=== PATIENT | male | born 1940 | race Caucasian/White ===

== ENCOUNTER → 2020-04-13 13:24 | Outpatient (BNVA) | payer MEDICARE, BC, SELFPAY | PROVIDERS: Family Provider Family Medicine; Visit Provider Nurse Practitioner Family | DX: M79.605 Pain in left leg (principal); L81.9 Disorder of pigmentation, unspecified | CPT/HCPCS: 80053; 85025 ==

== ENCOUNTER → 2020-04-20 09:27 | Outpatient (BNVA) | payer MEDICARE, BC, SELFPAY | PROVIDERS: Family Provider Family Medicine; Visit Provider Nurse Practitioner Family | DX: E87.6 Hypokalemia (principal) | CPT/HCPCS: 80048 ==

== ENCOUNTER 2020-05-05 13:32 | Outpatient (CLI) | payer MEDICARE, BC, SELFPAY ==
--- NOTE | 2020-05-05 13:30 | USCV_ITS ---
Akash Pichardo Age: 80 Gender: M : 1940 Exam Date: 05/05/2020 14:54 Ordering Phys: Maggie Richmond STAFFING DIRECTOR-Kina Technologist: Leon Gr [place] [facility] [place]ication: LT LEG SWELLING PROCEDURES: Venous duplex imaging was performed in only the left lower extremity. The following venous structures were evaluated: common femoral vein, profunda vein, proximal portion of the greater saphenous vein, superficial femoral vein, and the popliteal vein. In addition, the posterior tibial and peroneal trunk were evaluated. Serial compression, augmentation maneuvers, and spectral Doppler flow evaluation were performed. FINDINGS: Normal 2-D Doppler and augmentation and compressibility throughout the lower extremity venous structures. Additional imaging through the proximal calf veins also reveals no thrombus. Limited evaluation of the greater saphenous vein is patent with no thrombus.. The veins were found to be easily compressible with spontaneous blood flow. Non pulsatile flow pattern. Areas of echolucency were noted in the subcutaneous tissue CONCLUSIONS No evidence of DVT in the above-mentioned identifiable veins. Evidence of fluid retention/edema of the left lower extremity Dr Charis Garcia MD [facility] (Electronically Signed) Final Date: 08 May 2020 08:30 S
== END 2020-05-05 13:33 | disposition home or self-care (01) ==
LOC: RAD 13:38
PROVIDERS: Family Provider Family Medicine; Visit Provider Nurse Practitioner Family
DX: M79.605 Pain in left leg (principal); L81.9 Disorder of pigmentation, unspecified; M79.89 Other specified soft tissue disorders
CPT/HCPCS: 93971

== ENCOUNTER → 2020-05-17 15:14 | Outpatient (BNVA) | payer MEDICARE, BC, SELFPAY | PROVIDERS: Family Provider Family Medicine; PCP Nurse Practitioner; Visit Provider Nurse Practitioner | DX: E11.65 Type 2 diabetes mellitus with hyperglycemia (principal); I10 Essential (primary) hypertension | CPT/HCPCS: 80048; 83036; 85025 ==

== ENCOUNTER → 2020-06-23 15:37 | Outpatient (BNVA) | payer MEDICARE, BC, SELFPAY | PROVIDERS: Family Provider Family Medicine; PCP Nurse Practitioner; Visit Provider Nurse Practitioner Family | DX: R35.0 Frequency of micturition (principal) | CPT/HCPCS: 81000 ==

== ENCOUNTER → 2020-07-26 13:34 | Outpatient (BNVA) | payer MEDICARE, BC, SELFPAY | PROVIDERS: Family Provider Family Medicine; PCP Nurse Practitioner; Visit Provider Nurse Practitioner | DX: E11.65 Type 2 diabetes mellitus with hyperglycemia (principal) | CPT/HCPCS: 80053; 80061; 83036 ==

== ENCOUNTER → 2021-01-29 16:01 | Outpatient (BNVA) | payer MEDICARE, BC, SELFPAY | PROVIDERS: Family Provider Family Medicine; PCP Nurse Practitioner; Visit Provider Nurse Practitioner Family | DX: M25.431 Effusion, right wrist (principal); M79.89 Other specified soft tissue disorders; L53.9 Erythematous condition, unspecified; M79.601 Pain in right arm; E11.65 Type 2 diabetes mellitus with hyperglycemia; I10 Essential (primary) hypertension | CPT/HCPCS: 73110; 80053; 80061; 83036; 85025 ==

== ENCOUNTER 2021-01-30 11:02 | Outpatient (CLI) | payer MEDICARE, BC, SELFPAY ==
--- NOTE | 2021-01-30 11:00 | USCV_ITS ---
Akash Pichardo Age: 81 Gender: M : 1940 Exam Date: 01/30/2021 11:25 Ordering Phys: Maggie Richmond SOCIAL WORK ASSOCIATE-C Technologist: Sheree Hess Exam Location: [facility] – [place] Indication: REDNESS, SWELLING, PAIN-FOREARM TO HAND HISTORY: UNCLEAR TO WHETHER THERE WAS AN INJURY. HAND RED AND PUFFY...SWELLING HAS GONE FAR ELBOW PER FAMILY BUT NOT THAT EXTENSIVE TODAY PROCEDURES: Venous duplex imaging was performed in only the right upper extremity. The following venous structures were evaluated: internal jugular vein, subclavian vein, axillary vein, and brachial veins. In addition, the basilic vein, cephalic vein, radial vein, and ulnar vein. FINDINGS: Normal 2-D, color Doppler and phasicity noted in ther right upper extremity venous system extending from the right internal jugular vein through the main forearm. No thrombosis or occlusion noted. CONCLUSIONS No right upper extremity DVT. Dr. Ethel Espinoza DO (Electronically Signed) Final Date: 30 January 2021 13:06 S
== END 2021-01-30 11:03 | disposition home or self-care (01) ==
LOC: RAD 11:12
PROVIDERS: PCP Nurse Practitioner; Visit Provider Nurse Practitioner Family
DX: M79.89 Other specified soft tissue disorders (principal); L53.9 Erythematous condition, unspecified; M79.601 Pain in right arm
CPT/HCPCS: 93971

== ENCOUNTER → 2021-05-14 15:53 | Outpatient (BNVA) | payer MEDICARE, BC, SELFPAY | PROVIDERS: PCP Nurse Practitioner; Visit Provider Nurse Practitioner | DX: I10 Essential (primary) hypertension (principal); E11.65 Type 2 diabetes mellitus with hyperglycemia; K21.9 Gastro-esophageal reflux disease without esophagitis; F41.9 Anxiety disorder, unspecified; F03.90 Unspecified dementia, unspecified severity, without behavioral disturbance, psychotic disturbance, mood disturbance, and anxiety; F51.04 Psychophysiologic insomnia; R01.1 Cardiac murmur, unspecified | CPT/HCPCS: 80053; 81000; 83036; 84443; 85025 ==

== ENCOUNTER → 2021-09-04 15:56 | Outpatient (BNVA) | payer MEDICARE, BC, SELFPAY | PROVIDERS: PCP Nurse Practitioner; Visit Provider Nurse Practitioner | DX: R30.0 Dysuria (principal); E11.65 Type 2 diabetes mellitus with hyperglycemia | CPT/HCPCS: 81000 ==

== ENCOUNTER → 2021-09-05 09:29 | Outpatient (BNVA) | payer MEDICARE, BC, SELFPAY | PROVIDERS: PCP Nurse Practitioner; Visit Provider Nurse Practitioner | DX: E11.65 Type 2 diabetes mellitus with hyperglycemia (principal) | CPT/HCPCS: 80053; 80061; 83036; 85025 ==

== ENCOUNTER → 2021-11-05 14:33 | Outpatient (BNVA) | payer MEDICARE, BC, SELFPAY | PROVIDERS: PCP Nurse Practitioner; Visit Provider Nurse Practitioner | DX: E11.65 Type 2 diabetes mellitus with hyperglycemia (principal); I10 Essential (primary) hypertension | CPT/HCPCS: 81000 ==

== ENCOUNTER 2022-03-29 14:35 | Inpatient (IN) | payer MEDICARE, BC, SELFPAY ==
[2022-03-29] VITALS (9 sets, daily range): BP systolic 114–154; BP diastolic 61–75; PULSE 65–74; RESP 15–26; TEMP 36.9–37.8; O2SAT 89–98
--- NOTE | 2022-03-29 14:49 | XR_ITS ---
WS: [id number] Portable AP upright chest, 03/29/2022 Clinical Data: sob Comparison: None. Findings: There are bilateral basilar opacities which may represent atelectasis, pneumonia and/or eff usion. The heart is enlarged. The upper lobes are clear. There is a permanent pacemaker with the gene rator overlying the left chest and a single wire leading to the heart. XR/XR chest 1V portable [id number] Impression: 1. Bibasilar pulmonary opacities which may represent atelectasis, pneumonia and effusion. 2. Cardiomegaly.
--- NOTE | 2022-03-29 14:50 | ECG_ITS ---
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 Measurements Intervals [place] Rate: 65 P: [place]: QRS: -80 QRSD: 165 T: 92 QT: 489 QTc: 509 Interpretive Statements ELECTRONIC VENTRICULAR PACEMAKER ABNORMAL RHYTHM ECG No previous ECG available for comparison Electronically Signed On 03-30-2022 18:50:53 CDT by Charis Garcia M.D. [id number]
--- NOTE | 2022-03-29 15:16 | W.ED.SOB ---
Documented by User: HUGH Lewis 03/29/22 22:23 HPI - SOB/Dyspnea General: Chief Complaint: Shortness of Breath/Dyspnea Stated Complaint: Blood sugar level high, SOB Time Seen by Provider: 03/29/22 14:49 History of Present Illness: HPI Narrative: Patient is an 82-year-old male comes to the ED with shortness of breath. Past medical history of type 2 diabetes, hypertension, acid reflux and dementia. Patient has a pacemaker. Over the past week patient has had increased shortness of breath. He is not on any oxygen at home. Shortness of breath worsens when he lies flat or upon any exertion. Patient is currently on Lasix 20 mg every morning but his PCP increased his dose of Lasix to 80 mg daily for the past 3 days due to some fluid on his lungs. Denies any chest pain, cough, hemoptysis, fever, chills, nausea/vomiting, abdominal pain, bladder or bowel symptoms. Patient was taking doxycycline to treat a UTI and finished his course of antibiotics 3 days ago. Associated symptoms: Reports orthopnea; Deny abdominal pain, chest pain, fever(s), nausea, palpitations or vomiting Review of Systems Const: Denies: fever(s), chills or fatigue Eyes: Denies: change in vision or eye discomfort ENMT: Denies: throat pain, odynophagia, nasal discharge or nasal congestion Card: Reports: edema (Bilateral lower extremity edema), dyspnea on exertion and orthopnea; Denies: chest pain, palpitations or swelling of feet/ankles Resp: Reports: dyspnea; Denies: productive cough or non-productive cough GI: Denies: abdominal pain, nausea, vomiting, diarrhea, constipation or hematochezia : Denies: flank pain, difficulty urinating, dysuria or hematuria Musc: Denies: neck pain, back pain or extremity swelling Skin/Breast: Denies: rash or new lesions Neuro: Denies: headache(s), numbness in extremities or weakness in extremities PFSH ED PFSH: Medical History Acid reflux Dementia Environmental and seasonal allergies Essential (primary) hypertension Former smoker Hearing loss Heart murmur Type 2 diabetes mellitus with hyperglycemia Surgical History History of appendicitis right side History of hernia repair Family History Other Cancer Dementia Diabetes Hypertension Denies family history of Bleeding disorder Lung disease Stroke Social History Smoking and tobacco status: former smoker Second hand smoke exposure: No Smoking risk assessment/counseling performed?: No Alcohol intake: former Desire information about alcohol rehabilitation?: No Counseling given: No Desire information about substance/drug rehabilitation?: No Counseling given: No Adopted: No Caregiver/support person: No Lives independently: Yes Household members: none Housing: House Marital status: / Number of children: 5 service: No Current occupational status: retired History of recent travel: No Current gender identity: Male Physical Exam Const: COMMON NORMALS: patient oriented x3 and alert GENERAL APPEARANCE: cooperative HENMT: COMMON NORMALS: normocephalic HEAD & SCALP: normocephalic MOUTH: Normal oral and palatal mucosa present THROAT: posterior oropharynx normal and uvula midline Neck/C-Spine: COMMON NORMALS: supple GENERAL: Yes normal visual inspection Resp: COMMON NORMALS: normal respiratory effort, No retractions and No use of accessory muscles AUSCULTATION: crackles Laterality: left (Left lower lobe ) Cardio: COMMON NORMALS: regular rate, regular rhythm, S1 normal heart sound present, S2 normal heart sound present, No gallops present (Cardio), No clicks present (Cardio), No murmurs present (Cardio) and Peripheral pulses 2+ throughout RATE: regular rate RHYTHM: regular rhythm HEART SOUNDS: S1 normal heart sound present and S2 normal heart sound present PERIPHERAL PULSES: Peripheral pulses 2+ throughout GI: COMMON NORMALS: Normal to inspection, nondistended, normoactive bowel sounds present, Soft to palpation, non-tender and no masses PALPATION: Yes Soft to palpation : COMMON NORMALS: Yes no CVA tenderness BLADDER/KIDNEY EXAM: Yes no CVA tenderness Back/Pelvis: COMMON NORMALS: no CVA tenderness Extremity: GENERAL: Yes edema (Bilateral 2+ pitting edema in lower extremities) Neuro: COMMON NORMALS: patient oriented x3 SENSORIUM/ORIENTATION: Yes alert GAIT: Yes Normal gait present Skin: GENERAL SKIN EXAM: dry skin Course Vital Signs: Vital signs: Vital Signs Temperature 98.2 F 04/02/22 05:00 Pulse Rate 75 04/02/22 05:30 Respiratory Rate 24 H 04/02/22 05:30 Blood Pressure 163/78 04/02/22 05:30 Pulse Oximetry 91 04/02/22 05:30 Oxygen Delivery Me thod 04/01/22 19:52 Oxygen Flow Rate 2 04/01/22 19:52 MDM - SOB/Dyspnea Medical Decision Making Patient is an 82-year-old male who comes to the ED with shortness of breath. Past medical history of pacemaker, type 2 diabetes, hypertension and acid reflux. Shortness of breath symptoms worsen with exertion or when lying flat. Patient has been taking 80 mg of Lasix for the past 3 days to help with fluid retention. Vitals were stable. Exam of patient shows some crackling in the left lung base. He has 2+ pitting edema in his lower extremities. Chest x-ray showed some bibasilar pulmonary opacities likely effusion or pneumonia. White blood cell count 16, BNP over 70,000. Patient had a Pap and be put on 1 to 2 L of oxygen via nasal cannula here in the ED. I talked with Dr. Márquez about patient case and his need for admission. Dr. Márquez then took over patient case and had patient admitted. Lab Data I reviewed the patient's lab results. : 04/02/22 05:26 04/02/22 05:26 Labs/Radiology: Radiology Impressions Chest/Abdomen/Pelvis CT 03/29/22 19:43 IMPRESSION: Bilateral pleural effusions right greater than left. Dependent pulmonary parenchymal opacities noted bilaterally; there is probable component of atelectasis but coexisting infiltrate may also be present in these regions. Smaller patches of infiltrate in right upper lobe can relate to edema or infectious/inflammatory process. Findings suspicious for aortic valvular stenosis. Additional details as above. IMPRESSION: No findings of obstructive uropathy. Mojica catheter is well positioned in urinary bladder. Relatively prominent stool at rectosigmoid; early impaction difficult to exclude. Layering high density material in gallbladder can represent stones or milk of calcium. Motion degradation in upper abdomen. Additional details as above. Head CT 03/30/22 01:12 IMPRESSION: No acute intracranial abnormality. Chest X-Ray 04/01/22 07:37 IMPRESSION: Increasing abnormality in both hemithoraces most compatible with congestive heart failure. Laboratory Results WBC 16.0 10^3/uL (4.0-10.0) H 03/29/22 15:36 RBC 3.47 10^6/uL (4.1-5.3) L 03/29/22 15:36 Hgb 10.2 g/dL (11.7-16.6) L 03/29/22 15:36 Hct 32.5 % (42.0-52.0) L 03/29/22 15:36 MCV 93.7 fl (80-94) 03/29/22 15:36 MCH 29.4 pg (28.0-34.0) 03/29/22 15:36 MCHC 31.4 g/dL (30.0-36.0) 03/29/22 15:36 RDW 15.9 % (12.1-15.1) H 03/29/22 15:36 Plt Count 279 10^3/cmm (130-400) 03/29/22 15:36 MPV 10.9 fL (7.4-10.4) H 03/29/22 15:36 Neut % (Auto) 78.8 % 03/29/22 15:36 Lymph % (Auto) 12.3 % 03/29/22 15:36 [place] % (Auto) 8.2 % 03/29/22 15:36 Eos % (Auto) 0.0 % 03/29/22 15:36 Baso % (Auto) 0.1 % 03/29/22 15:36 Neut # (Auto) 12.65 10^3/uL (1.8-7.7) H 03/29/22 15:36 Lymph # (Auto) 2.0 10^3/uL (0.8-4.8) 03/29/22 15:36 [place] # (Auto) 1.3 10^3/uL (0.2-0.9) H 03/29/22 15:36 Eos # (Auto) 0.0 10^3/uL (0.0-0.8) 03/29/22 15:36 Baso # (Auto) 0.0 10^3/uL (0.0-0.1) 03/29/22 15:36 Nucleated RBC % (auto) 0.2 % 03/29/22 15:36 Nucleated RBCs # 0.0 /100WBC 03/29/22 15:36 Specimen Type Arterial 03/29/22 11:59 Sample Site Brachial, left 03/29/22 11:59 ABG pH 7.53 (7.35-7.45) H 03/29/22 11:59 ABG pCO2 19.4 mmHg (35-45) L* 03/29/22 11:59 ABG pO2 59.8 mmHg (80.0-100.0) L 03/29/22 11:59 ABG HCO3 16.1 mmol/L (22-26) L 03/29/22 11:59 ABG O2 Saturation 93.5 03/29/22 11:59 ABG Base Excess -5.4 mmol/L (-2.0-2.0) L 03/29/22 11:59 Jairo Test N/a 03/29/22 11:59 A-a O2 Gradient 14.8 mmHg (5-10) H 03/29/22 11:59 Hematocrit 27.0 % (42-52) L 03/29/22 11:59 Hgb O2 Saturation 91.5 % (95-100) L 03/29/22 11:59 Carboxyhemoglobin 2.1 %THgb (0.4-20.1) 03/29/22 11:59 Methemoglobin 0.1 % (0.4-1.5) L 03/29/22 11:59 Total Hemoglobin 8.8 g/dL (14-18) L 03/29/22 11:59 Sodium 129.0 mmol/L (131-143) L 03/29/22 11:59 Potassium 3.4 mmol/L (3.5-5.0) L 03/29/22 11:59 Glucose 158.0 mg/dL (70-115) H 03/29/22 11:59 Ionized Calcium 1.1 mmol/L (1.1-1.4) 03/29/22 11:59 O2 Delivery Device Nc 03/29/22 11:59 O2 Liters/Min 2.0 % 03/29/22 11:59 FiO2 28.0 % 03/29/22 11:59 Inside Sales Account Representative ID Ed 03/29/22 11:59 Sodium 132 mmol/L (136-145) L 03/29/22 15:36 Potassium 4.3 mmol/L (3.5-5.1) 03/29/22 15:36 Chloride 94 mmol/L (98-107) L 03/29/22 15:36 Carbon Dioxide 18 mmol/L (22-29) L 03/29/22 15:36 Anion Gap 24.3 (5-19) H 03/29/22 15:36 BUN 47 mg/dL (8-23) H 03/29/22 15:36 Creatinine 1.5 mg/dL (0.7-1.2) H 03/29/22 15:36 GFR Calculation Not Reportable 03/29/22 15:36 Glucose 211 mg/dL (65-115) H 03/29/22 15:36 POC Glucose 217 mg/dL (70-110) H 03/29/22 15:34 Calculated Osmolality 293 mOsm/kg (285-295) 03/29/22 15:36 Calcium 9.0 mg/dL (8.5-10.5) 03/29/22 15:36 Iron 17 ug/dL (59-158) L 03/29/22 17:34 Iron 18 ug/dL (59-158) L 03/29/22 17:34 TIBC 233 mcg/dl 03/29/22 17:34 % Saturation 7.7 % (20-50) L 03/29/22 17:34 Unsat Iron Binding 215 ug/dL (112-347) 03/29/22 17:34 Ferritin 141 ng/mL (30-400) 03/29/22 17:34 Total Bilirubin 0.5 mg/dL (0.15-1.2) 03/29/22 15:36 AST 36 U/L (0-40) 03/29/22 15:36 ALT 39 U/L (0-41) 03/29/22 15:36 Alkaline Phosphatase 69 IU/L (40-130) 03/29/22 15:36 Troponin T Baseline 43 ng/L (0-15) H 03/29/22 15:36 Troponin T 120 Minute 37.70 ng/L (0-15) H 03/29/22 17:34 Delta Troponin T -5.30 ABS# (0-10) L 03/29/22 17:34 NT-Pro-B Natriuret Pep > 93669 pg/mL (0-450) H 03/29/22 15:36 Total Protein 6.8 g/dL (6.6-8.7) 03/29/22 15:36 Albumin 4.3 g/dL (3.5-5.2) 03/29/22 15:36 Globulin 2.5 g/dL (1.3-4.6) 03/29/22 15:36 Triglycerides 83 mg/dL (0-150) 03/29/22 17:34 Cholesterol 125 mg/dL (0-200) 03/29/22 17:34 LDL Cholesterol, Calc 87 mg/dL (50-129) 03/29/22 17:34 HDL Cholesterol 21 mg/dL (60-100) L 03/29/22 17:34 LDL/HDL Ratio 4.14 RATIO (0.00-3.22) H 03/29/22 17:34 Cholesterol/HDL Ratio 5.95 mg/dL (1.0-5.00) H 03/29/22 17:34 Procalcitonin 0.20 ng/mL (0-0.5) 03/29/22 17:34 TSH 1.92 uIU/mL (0.27-4.20) 03/29/22 17:34 Urine Color Yellow (Yellow) 03/29/22 17:35 Urine Appearance Clear (CLEAR) 03/29/22 17:35 Urine pH 5 (5-7) 03/29/22 17:35 Ur Specific [place] 1.020 (1.005-1.030) 03/29/22 17:35 Urine Protein 1+ (Negative) H 03/29/22 17:35 Urine Glucose (UA) Norm (Normal) 03/29/22 17:35 Urine Ketones Negative (Negative) 03/29/22 17:35 Urine Blood 2+ (Negative) H 03/29/22 17:35 Urine Nitrate Negative (Negative) 03/29/22 17:35 Urine Bilirubin Neg (Negative) 03/29/22 17:35 Urine Urobilinogen Norm mg/dL (Negative) 03/29/22 17:35 Ur Leukocyte Esterase 1+ (Negative) H 03/29/22 17:35 Urine RBC 0-4 /hpf (0-2) H 03/29/22 17:35 Urine WBC 55-80 /hpf (0-5) H 03/29/22 17:35 Ur Squamous Epith Cells 0-4 /hpf (0-5) H 03/29/22 17:35 Amorphous Sediment Not Reportable 03/29/22 17:35 Urine Bacteria None /hpf (NONE) 03/29/22 17:35 Discharge Plan Discharge Patient Disposition: Admitted As Inpatient Admit Provider: Shanna Chase Clinical Impression: Congestive heart failure, Acute kidney injury, Dementia, Pleural effusion, Pneumonia, Diabetes mellitus Condition: Stable Sign Out Sign Out Data: Patient Sign Out occurred on 03/29/22 at 17:47. Patient's care was discussed, and care was transferred from to Woody Márquez DO. Coding Level of Care Code ED Pencils Washer for Chg Fwd Exam Comprehensive Documented by User: Woody Márquez DO 04/02/22 07:01 HPI - SOB/Dyspnea General: Chief Complaint: Shortness of Breath/Dyspnea Stated Complaint: Blood sugar level high, SOB Time Seen by Provider: 03/29/22 14:49 History of Present Illness: HPI Narrative: Patient is an 82-year-old male comes to the ED with shortness of breath. Past medical history of type 2 diabetes, hypertension, acid reflux and dementia. Patient has a pacemaker. Over the past week patient has had increased shortness of breath. He is not on any oxygen at home. Shortness of breath worsens when he lies flat or upon any exertion. Patient is currently on Lasix 20 mg every morning but his PCP increased his dose of Lasix to 80 mg daily for the past 3 days due to some fluid on his lungs. Denies any chest pain, cough, hemoptysis, fever, chills, nausea/vomiting, abdominal pain, bladder or bowel symptoms. Patient was taking doxycycline to treat a UTI and finished his course of antibiotics 3 days ago. 82-year-old male presents emergency room initially seen by midlevel. He is short of breath and orthopneic. He is now requiring oxygen whereas he usually does not at home. He recently had his Lasix dose increased from 20-80 daily to try to alleviate heart failure. Recently treated for a cystitis as well. No significant chest pains. Patient's EKG shows a paced rhythm. MD elicited complaint: shortness of breath Pertinent past history: congestive heart failure Onset (ago): day(s) Timing: constant Severity: moderate Exacerbating factors: lying flat and exertion Relieving factors: oxygen, rest and upright position Known history of: congestive heart failure Associated symptoms: Reports chest congestion and cough Treatment prior to arrival: none Review of Systems Const: Reports: malaise Resp: Reports: chest congestion PFSH ED PFSH: Medical History Acid reflux Dementia Environmental and seasonal allergies Essential (primary) hypertension Former smoker Hearing loss Heart murmur Type 2 diabetes mellitus with hyperglycemia Surgical History History of appendicitis right side History of hernia repair Family History Other Cancer Dementia Diabetes Hypertension Denies family history of Bleeding disorder Lung disease Stroke Social History Smoking and tobacco status: former smoker Second hand smoke exposure: No Smoking risk assessment/counseling performed?: No Alcohol intake: former Desire information about alcohol rehabilitation?: No Counseling given: No Desire information about substance/drug rehabilitation?: No Counseling given: No Adopted: No Caregiver/support person: No Lives independently: Yes Household members: none Housing: House Marital status: / Number of children: 5 service: No Current occupational status: retired History of recent travel: No Current gender identity: Male Physical Exam Const: COMMON NORMALS: no acute distress GENERAL APPEARANCE: cooperative and comfortable ORIENTATION/CONSCIOUSNESS: Yes awake HENMT: COMMON NORMALS: normocephalic, atraumatic and hearing grossly normal bilaterally HEAD & SCALP: normocephalic and atraumatic Resp: COMMON NORMALS: normal respiratory effort, No retractions and No use of accessory muscles AUSCULTATION: crackles Cardio: COMMON NORMALS: No murmurs present (Cardio) RATE: tachycardic RHYTHM: abnormal rhythm irregularly irregular GI: COMMON NORMALS: Soft to palpation and No hepatosplenomegaly present AUSCULTATION: Yes normoactive bowel sounds PALPATION: Yes Soft to palpation, No Tenderness to palpation present (GI), No Guarding due to palpation present (GI) and Yes No hepatosplenomegaly present : COMMON NORMALS: Yes no CVA tenderness BLADDER/KIDNEY EXAM: Yes no CVA tenderness Back/Pelvis: COMMON NORMALS: no CVA tenderness Extremity: COMMON NORMALS: normal to inspection, capillary refill normal, no clubbing, cyanosis or edema, no calf tenderness and no pedal edema Skin: COMMON NORMALS: no rashes or lesions noted GENERAL SKIN EXAM: no rashes or lesions noted Course Vital Signs: Vital signs: Vital Signs Temperature 98.2 F 04/02/22 05:00 Pulse Rate 75 04/02/22 05:30 Respiratory Rate 24 H 04/02/22 05:30 Blood Pressure 163/78 04/02/22 05:30 Pulse Oximetry 91 04/02/22 05:30 Oxygen Delivery Me thod 04/01/22 19:52 Oxygen Flow Rate 2 04/01/22 19:52 MDM - SOB/Dyspnea Medical Decision Making Patient is an 82-year-old male who comes to the ED with shortness of breath. Past medical history of pacemaker, type 2 diabetes, hypertension and acid reflux. Shortness of breath symptoms worsen with exertion or when lying flat. Patient has been taking 80 mg of Lasix for the past 3 days to help with fluid retention. Vitals were stable. Exam of patient shows some crackling in the left lung base. He has 2+ pitting edema in his lower extremities. Chest x-ray showed some bibasilar pulmonary opacities likely effusion or pneumonia. White blood cell count 16, BNP over 70,000. Patient had a Pap and be put on 1 to 2 L of oxygen via nasal cannula here in the ED. I talked with Dr. Márquez about patient case and his need for admission. Dr. Márquez then took over patient case and had patient admitted. Patient is seen and evaluated in conjunction with HUGH Lewis. His charting was reviewed. I agree with Don's assessment patient is in heart failure requiring oxygen now we will admit discussed with hospitalist orders written. Lab Data : 04/02/22 05:26 04/02/22 05:26 Labs/Radiology: Radiology Impressions Chest/Abdomen/Pelvis CT 03/29/22 19:43 IMPRESSION: Bilateral pleural effusions right greater than left. Dependent pulmonary parenchymal opacities noted bilaterally; there is probable component of atelectasis but coexisting infiltrate may also be present in these regions. Smaller patches of infiltrate in right upper lobe can relate to edema or infectious/inflammatory process. Findings suspicious for aortic valvular stenosis. Additional details as above. IMPRESSION: No findings of obstructive uropathy. Mojica catheter is well positioned in urinary bladder. Relatively prominent stool at rectosigmoid; early impaction difficult to exclude. Layering high density material in gallbladder can represent stones or milk of calcium. Motion degradation in upper abdomen. Additional details as above. Head CT 03/30/22 01:12 IMPRESSION: No acute intracranial abnormality. Chest X-Ray 04/01/22 07:37 IMPRESSION: Increasing abnormality in both hemithoraces most compatible with congestive heart failure. Laboratory Results WBC 16.0 10^3/uL (4.0-10.0) H 03/29/22 15:36 RBC 3.47 10^6/uL (4.1-5.3) L 03/29/22 15:36 Hgb 10.2 g/dL (11.7-16.6) L 03/29/22 15:36 Hct 32.5 % (42.0-52.0) L 03/29/22 15:36 MCV 93.7 fl (80-94) 03/29/22 15:36 MCH 29.4 pg (28.0-34.0) 03/29/22 15:36 MCHC 31.4 g/dL (30.0-36.0) 03/29/22 15:36 RDW 15.9 % (12.1-15.1) H 03/29/22 15:36 Plt Count 279 10^3/cmm (130-400) 03/29/22 15:36 MPV 10.9 fL (7.4-10.4) H 03/29/22 15:36 Neut % (Auto) 78.8 % 03/29/22 15:36 Lymph % (Auto) 12.3 % 03/29/22 15:36 [place] % (Auto) 8.2 % 03/29/22 15:36 Eos % (Auto) 0.0 % 03/29/22 15:36 Baso % (Auto) 0.1 % 03/29/22 15:36 Neut # (Auto) 12.65 10^3/uL (1.8-7.7) H 03/29/22 15:36 Lymph # (Auto) 2.0 10^3/uL (0.8-4.8) 03/29/22 15:36 [place] # (Auto) 1.3 10^3/uL (0.2-0.9) H 03/29/22 15:36 Eos # (Auto) 0.0 10^3/uL (0.0-0.8) 03/29/22 15:36 Baso # (Auto) 0.0 10^3/uL (0.0-0.1) 03/29/22 15:36 Nucleated RBC % (auto) 0.2 % 03/29/22 15:36 Nucleated RBCs # 0.0 /100WBC 03/29/22 15:36 Specimen Type Arterial 03/29/22 11:59 Sample Site Brachial, left 03/29/22 11:59 ABG pH 7.53 (7.35-7.45) H 03/29/22 11:59 ABG pCO2 19.4 mmHg (35-45) L* 03/29/22 11:59 ABG pO2 59.8 mmHg (80.0-100.0) L 03/29/22 11:59 ABG HCO3 16.1 mmol/L (22-26) L 03/29/22 11:59 ABG O2 Saturation 93.5 03/29/22 11:59 ABG Base Excess -5.4 mmol/L (-2.0-2.0) L 03/29/22 11:59 Jairo Test N/a 03/29/22 11:59 A-a O2 Gradient 14.8 mmHg (5-10) H 03/29/22 11:59 Hematocrit 27.0 % (42-52) L 03/29/22 11:59 Hgb O2 Saturation 91.5 % (95-100) L 03/29/22 11:59 Carboxyhemoglobin 2.1 %THgb (0.4-20.1) 03/29/22 11:59 Methemoglobin 0.1 % (0.4-1.5) L 03/29/22 11:59 Total Hemoglobin 8.8 g/dL (14-18) L 03/29/22 11:59 Sodium 129.0 mmol/L (131-143) L 03/29/22 11:59 Potassium 3.4 mmol/L (3.5-5.0) L 03/29/22 11:59 Glucose 158.0 mg/dL (70-115) H 03/29/22 11:59 Ionized Calcium 1.1 mmol/L (1.1-1.4) 03/29/22 11:59 O2 Delivery Device Nc 03/29/22 11:59 O2 Liters/Min 2.0 % 03/29/22 11:59 FiO2 28.0 % 03/29/22 11:59 Inside Sales Account Representative ID Ed 03/29/22 11:59 Sodium 132 mmol/L (136-145) L 03/29/22 15:36 Potassium 4.3 mmol/L (3.5-5.1) 03/29/22 15:36 Chloride 94 mmol/L (98-107) L 03/29/22 15:36 Carbon Dioxide 18 mmol/L (22-29) L 03/29/22 15:36 Anion Gap 24.3 (5-19) H 03/29/22 15:36 BUN 47 mg/dL (8-23) H 03/29/22 15:36 Creatinine 1.5 mg/dL (0.7-1.2) H 03/29/22 15:36 GFR Calculation Not Reportable 03/29/22 15:36 Glucose 211 mg/dL (65-115) H 03/29/22 15:36 POC Glucose 217 mg/dL (70-110) H 03/29/22 15:34 Calculated Osmolality 293 mOsm/kg (285-295) 03/29/22 15:36 Calcium 9.0 mg/dL (8.5-10.5) 03/29/22 15:36 Iron 17 ug/dL (59-158) L 03/29/22 17:34 Iron 18 ug/dL (59-158) L 03/29/22 17:34 TIBC 233 mcg/dl 03/29/22 17:34 % Saturation 7.7 % (20-50) L 03/29/22 17:34 Unsat Iron Binding 215 ug/dL (112-347) 03/29/22 17:34 Ferritin 141 ng/mL (30-400) 03/29/22 17:34 Total Bilirubin 0.5 mg/dL (0.15-1.2) 03/29/22 15:36 AST 36 U/L (0-40) 03/29/22 15:36 ALT 39 U/L (0-41) 03/29/22 15:36 Alkaline Phosphatase 69 IU/L (40-130) 03/29/22 15:36 Troponin T Baseline 43 ng/L (0-15) H 03/29/22 15:36 Troponin T 120 Minute 37.70 ng/L (0-15) H 03/29/22 17:34 Delta Troponin T -5.30 ABS# (0-10) L 03/29/22 17:34 NT-Pro-B Natriuret Pep > 30769 pg/mL (0-450) H 03/29/22 15:36 Total Protein 6.8 g/dL (6.6-8.7) 03/29/22 15:36 Albumin 4.3 g/dL (3.5-5.2) 03/29/22 15:36 Globulin 2.5 g/dL (1.3-4.6) 03/29/22 15:36 Triglycerides 83 mg/dL (0-150) 03/29/22 17:34 Cholesterol 125 mg/dL (0-200) 03/29/22 17:34 LDL Cholesterol, Calc 87 mg/dL (50-129) 03/29/22 17:34 HDL Cholesterol 21 mg/dL (60-100) L 03/29/22 17:34 LDL/HDL Ratio 4.14 RATIO (0.00-3.22) H 03/29/22 17:34 Cholesterol/HDL Ratio 5.95 mg/dL (1.0-5.00) H 03/29/22 17:34 Procalcitonin 0.20 ng/mL (0-0.5) 03/29/22 17:34 TSH 1.92 uIU/mL (0.27-4.20) 03/29/22 17:34 Urine Color Yellow (Yellow) 03/29/22 17:35 Urine Appearance Clear (CLEAR) 03/29/22 17:35 Urine pH 5 (5-7) 03/29/22 17:35 Ur Specific [place] 1.020 (1.005-1.030) 03/29/22 17:35 Urine Protein 1+ (Negative) H 03/29/22 17:35 Urine Glucose (UA) Norm (Normal) 03/29/22 17:35 Urine Ketones Negative (Negative) 03/29/22 17:35 Urine Blood 2+ (Negative) H 03/29/22 17:35 Urine Nitrate Negative (Negative) 03/29/22 17:35 Urine Bilirubin Neg (Negative) 03/29/22 17:35 Urine Urobilinogen Norm mg/dL (Negative) 03/29/22 17:35 Ur Leukocyte Esterase 1+ (Negative) H 03/29/22 17:35 Urine RBC 0-4 /hpf (0-2) H 03/29/22 17:35 Urine WBC 55-80 /hpf (0-5) H 03/29/22 17:35 Ur Squamous Epith Cells 0-4 /hpf (0-5) H 03/29/22 17:35 Amorphous Sediment Not Reportable 03/29/22 17:35 Urine Bacteria None /hpf (NONE) 03/29/22 17:35 Discharge Plan Discharge Patient Disposition: Admitted As Inpatient Admit Provider: Shanna Chase Clinical Impression: Congestive heart failure, Acute kidney injury, Dementia, Pleural effusion, Pneumonia, Diabetes mellitus Condition: Stable Sign Out Sign Out Data: Patient Sign Out occurred on 03/29/22 at 17:47. Patient's care was discussed, and care was transferred from to Woody Márquez DO. Coding Level of Care Code ED Pencils Washer for Brandyg Fwd Exam Comprehensive
[2022-03-29 15:52] LABS: Basophils % 0.1 %; Hematocrit 32.5 % (42.0-52.0); Hemoglobin 10.2 g/dL (11.7-16.6); Lymphocytes % 12.3 %; Mean Corpuscular HGB Conc 31.4 g/dL (30.0-36.0); Mean Corpuscular Hemoglobin 29.4 pg (28.0-34.0); Mean Corpuscular Volume 93.7 fl (80-94); Mean Platelet Volume 10.9 fL (7.4-10.4); Monocytes # 1.3 10^3/uL (0.2-0.9); Monocytes % 8.2 %; Neutrophils # 12.65 10^3/uL (1.8-7.7); Neutrophils % 78.8 %; Nucleated Red Blood Cells % 0.2 %; Platelet Count 279 10^3/cmm (130-400); Red Blood Count 3.47 10^6/uL (4.1-5.3); Red Cell Distribution Width 15.9 % (12.1-15.1)
[2022-03-29 16:48] LABS: Alanine Aminotransferase 39 U/L (0-41); Albumin Level 4.3 g/dL (3.5-5.2); Alkaline Phosphatase 69 IU/L (40-130); Anion Gap 24.3 (5-19); Aspartate Amino Transferase 36 U/L (0-40); Blood Urea Nitrogen 47 mg/dL (8-23); Carbon Dioxide 18 mmol/L (22-29); Chloride 94 mmol/L (98-107); Globulin 2.5 g/dL (1.3-4.6); Glucose 211 mg/dL (65-115); Osmolality Calculated 293 mOsm/kg (285-295); Potassium 4.3 mmol/L (3.5-5.1); Sodium 132 mmol/L (136-145); Total Bilirubin 0.5 mg/dL (0.15-1.2); Total Protein 6.8 g/dL (6.6-8.7)
[2022-03-29 16:49] LABS: Troponin(5th) Baseline 43 ng/L (0-15)
--- NOTE | 2022-03-29 16:51 | PC.PHAR ---
PTS FAMILY VERIFIED PTS MEDICATIONS AND BROUGHT IN SOME MEDICATION BOTTLES-PTS FAMILY STATES THE PT IS TAKING LASIX 80MG DAILY AND KCL 20MEQ DAILY FILLED ON 03/27/22 7D/S-STATES THE PT IS SUPPOSE TO RESTART THE KCL 10MEQ DAILY LAST FILLED 02/21/22 30D/S AND LASIX 20MG DAILY LAST FILLED 03/21/22 30D/S-PTS FAMILY STATES THE SPIRONOLACTONE 100MG PO DAILY RX FILLED ON 02/01/22 90D/S WAS DCED-PTS FAMILY STATES THE PT FINISHED THE DOXYCYCLINE HYCLATE 100MG FILLED ON 03/19/22 7D/S-PT BROUGHT IN MED BOTTLE FOR KEFLEX 500MG TID X 2 DAYS DATED 12/11/21 HAS 2 CAPS LEFT IN BOTTLE PTS FAMILY STATES PT NOT BEEN TAKING-PT BROUGHT IN MULTIVITAMIN PTS FAMILY STATES THE PT DOESNT TAKE PT ALSO HAS [facility] [employer] FAMILY STATES NOT TAKING-NOTES ARE MADE IN THE PHARMACY COMMENTS
--- NOTE | 2022-03-29 17:04 | ECG_ITS ---
[facility] Test Date: 2022-03-29 Pat Name: Akash Pichardo Department: Room: Gender: Male Technical Developer: : 1940 Requested By: Henrik Soto Order Number: [id number] Ragini MD: Charis Garcia M.D. Measurements Intervals [place] Rate: 72 P: SD: QRS: 0 QRSD: 102 T: -44 QT: 437 QTc: 478 Interpretive Statements Possible atrial fibrillation with a demand V paced rhythm ELECTRONIC VENTRICULAR PACEMAKER -- CONTOUR ANALYSIS BASED ON INTRINSIC RHYTHM INCOMPLETE RIGHT BUNDLE BRANCH BLOCK [90+ ms QRS DURATION, TERMINAL R IN V1/V2, 40+ ms S IN I/aVL/V4/V5/V6] ST DEVIATION AND MODERATE T-WAVE ABNORMALITY, CONSIDER ANTEROLATERAL ISCHEMIA [-0.1+ mV T-WAVE IN V3-V6] Nonspecific T wave changes in the inferior leads Compared to ECG 03/29/2022 14:55:36 Incomplete right bundle-branch block now present T-wave abnormality now present Possible ischemia now present Electronically Signed On 03-30-2022 19:17:32 CDT by Charis Garcia M.D. [id number]
[2022-03-29 17:42] LABS: Glucose Point of Care 217 mg/dL (70-110)
[2022-03-29 17:55] LABS: Add Urine Microscopic? YES; Bilirubin Urine Neg (Negative); Blood Urine 2+ (Negative); Glucose Urine UA Norm (Normal); Ketones Urine Negative (Negative); Leukocyte Esterase Urine 1+ (Negative); Nitrate Urine Negative (Negative); Protein Urine 1+ (Negative); RBC Urine 0-4 /hpf (0-2); Squamous Epithelial Cell Urine 0-4 /hpf (0-5); Urine Appearance Clear (CLEAR); Urine Color Yellow (Yellow); Urobilinogen Urine Norm (Negative); WBC Urine 55-80 /hpf (0-5); pH Urine 5 (5-7)
[2022-03-29 17:56] LABS: Add Urine Culture? Yes
[2022-03-29 18:04] LABS: NT Pro B Type Natriuretic Pept > 70000 pg/mL (0-450)
[2022-03-29] MEDS: cefTRIAXone 1,000 MG in sodium chloride 0.9% (plus) 50 ML 100 MG IV (18:49)
--- NOTE | 2022-03-29 19:09 | P.HP_ITS ---
Providers/Chief Complaint Primary Care Provider: Henrik Morris Chief Complaint: Blood sugar level high, SOB History of Present Illness Akash Pichardo is a 82 year old male with past medical history of dementia, former smoker, heart murmur, type 2 diabetes mellitus not insulin-dependent, hypertension, status post pacemaker presented to the ER today for complaint of shortness of breath. He is not on any oxygen at home. Shortness of breath worsens when he lies flat and it also worsens if he exerts himself. He used to be on 20 mg of Lasix every day at home but recently his primary care physician increase his dose to 80 mg daily for the past 3 days due to concern of fluid around his lungs. Unsure of how much urine output he has been having at this time. He denies any chest pain, cough, hemoptysis, fever, chills, nausea, vomi ting, abdominal pain, bladder or bowel symptoms. Recently outside the hospital he was also being treated for a presumed UTI and finished a course of antibiotics 3 days ago. He was on doxycycline 100 mg twice daily. Patient denies drinking alcohol at this time and is a former alcohol drinker. ED course: On arrival to the emergency department blood pressure 135/61, respiratory rate 17, pulse 65, temperature 98.4. He also had another temperature reading of 99.9. Currently at this time requiring 4 L of Nasal cannula. Initially upon presentation he was on 2 L. Chest x-ray done showed bibasilar pulmonary opacities which may represent atelectasis pneumonia or effusion, cardiomegaly. Pulmonary vascular congestion also noted. BNP 70,000, remarkable labs WBC 16,000, hemoglobin 10.9, creatinine 1.5, baseline unknown urinalysis positive for leukocyte esterase, 2+ blood 1+ protein. Medications/Allergies Home Medications Medication Instructions Recorded Confirmed Last Taken Type aspirin 81 mg tablet,delayed 81 mg PO QAM 04/06/20 03/29/22 03/29/22 07:00 History release loratadine 10 mg tablet 10 mg PO DAILY 04/06/20 03/29/22 Unknown History amlodipine 5 mg tablet 5 mg PO DAILY #30 tabs 09/07/21 03/29/22 Unknown Rx furosemide 20 mg tablet (Lasix) 20 mg PO QAM #30 tabs 09/07/21 03/29/22 Unknown Rx lisinopril 20 mg tablet 20 mg PO BID 30 days #60 tabs 09/07/21 03/29/22 Unknown Rx metformin 500 mg tablet,extended 500 mg PO BID #60 tabs 09/07/21 03/29/22 Unknown Rx release 24 hr omeprazole 20 mg capsule,delayed 20 mg PO DAILY #30 caps 09/07/21 03/29/22 Unknown Rx release glipizide 2.5 mg tablet, extended 2.5 mg PO BID #60 tabs 03/22/22 03/29/22 Unknown Rx release 24 hr potassium chloride 10 mEq 10 meq PO DAILY 30 days #30 tabs 03/22/22 03/29/22 Unknown Rx tablet,extended release L.acidop,casei,lactis,rham-B.lact,berna 1 cap PO DAILY PRN ANTIBIOTICS 03/29/22 03/29/22 Unknown History 625 mg (10 billion cell) capsule (Advanced Probiotic) carvedilol 25 mg tablet 25 mg PO BID 03/29/22 03/29/22 Unknown History clonidine 0.3 mg/24 hr weekly 1 patch transdermal Q7D 03/29/22 03/29/22 03/28/22 History transdermal patch cranberry extract 200 mg capsule 200 mg PO DAILY 03/29/22 03/29/22 Unknown History doxycycline hyclate 100 mg tablet 100 mg PO BID 03/29/22 03/29/22 03/26/22 History FINISHED 03/26/22 furosemide 80 mg tablet 80 mg PO QAM 03/29/22 03/29/22 Unknown History potassium chloride 20 mEq 20 meq PO BEDTIME 03/29/22 03/29/22 Unknown History tablet,extended release saw palmetto 450 mg capsule 450 mg PO DAILY 03/29/22 03/29/22 Unknown History sertraline 50 mg tablet (Zoloft) 50 mg PO QAM 03/29/22 03/29/22 Unknown History Allergies Allergy/AdvReac Type Severity Reaction Status Date / Time Sulfa (Sulfonamide Allergy ALGY-Hives Verified 03/29/22 16:35 Antibiotics) PFSH Acute PFSH: Medical History Acid reflux Dementia Environmental and seasonal allergies Essential (primary) hypertension Former smoker Hearing loss Heart murmur Type 2 diabetes mellitus with hyperglycemia Surgical History History of appendicitis right side History of hernia repair Family History Other Cancer Dementia Diabetes Hypertension Denies family history of Bleeding disorder Lung disease Stroke Social History Smoking and tobacco status: former smoker Second hand smoke exposure: No Smoking risk assessment/counseling performed?: No Alcohol intake: former Desire information about alcohol rehabilitation?: No Counseling given: No Desire information about substance/drug rehabilitation?: No Counseling given: No Adopted: No Caregiver/support person: No Lives independently: Yes Household members: none Housing: House Marital status: / Number of children: 5 service: No Current occupational status: retired History of recent travel: No Current gender identity: Male Vitals/I&O/Wt Last Vital Signs Temp 98.4 F 03/29/22 14:40 Pulse 65 03/29/22 18:11 Resp 17 03/29/22 18:11 BP 135/61 03/29/22 15:13 Pulse Ox 98 03/29/22 18:11 O2 Del Method 03/29/22 18:11 O2 Flow Rate 2 03/29/22 18:11 Weight last 48 hrs Weight 77.111 kg Physical Exam Narrative: General: Altered but alert, patient seen sitting up in bed appeari ng comfortable at this time on 4 L nasal cannula, no conversational dyspnea noted, no acute distress HEENT: Normocephalic, atraumatic, EOMI, breathing comfortably on 4 L Cardio: Irregularly irregular, normal S1-S2, pacemaker in place on left side of chest Respiratory: Bilateral bibasilar crackles on exam GI: Abdomen soft, nontender, nondistended, bowel sounds + Extremities: 2+ pitting edema bilateral lower extremities upto ankles Data : 03/29/22 15:36 03/29/22 15:36 A&P Assessment and plan (1) Type 2 diabetes mellitus with hyperglycemia: Status: Chronic Qualifiers: Diabetes mellitus termite control service representative insulin use: without termite control service representative use Qualified Code(s): E11.65 - Type 2 diabetes mellitus with hyperglycemia (2) Former smoker: Status: Acute (3) Essential (primary) hypertension: Status: Chronic (4) Acid reflux: Status: Chronic Qualifiers: Esophagitis presence: without esophagitis Qualified Code(s): K21.9 - Gastro-esophageal reflux disease without esophagitis (5) Dementia: Status: Chronic (6) Heart failure: Status: Acute (7) Acute kidney injury: Status: Acute (8) Leukocytosis: Status: Acute (9) Pacemaker: Status: Acute (10) Sepsis: Status: Acute (11) Anemia: Status: Acute Plan #Shortness of breath secondary to acute congestive heart failure, unsure if prior history #B/L pleural effusions #Hypertension, Hyperlipidemia #Diabetes mellitus type 2, [id number] #Dementia #Status post pacemaker #Former smoker, for more alcohol drinker #Possible pneumonia versus atelectasis #ROMANA possibly secondary to prerenal cardiorenal syndrome, creatinine 1.5 #History of BPH. #Anemia, possibly dilutional due to fluid overload versus iron deficiency - Will admit to ICU. I suspect a recent cardiac event. EKG shows T wave inversions and possible inferiolateral ischemia. ? Check iron studies, TIBC, fecal occult blood test, ferritin ? Troponin 43, 37, delta -5, BNP greater than 70,000 ? Continue clonidine patch, carvedilol. Hold amlodipine ? Diurese with lasix 40 IV BID daily ? Place a Mojica catheter for strict output ? Creatinine 1.5. Hopefully this will improve with diuresis. We will check CT abdomen pelvis to rule out postrenal causes. ? Hold home potassium, metformin, glipizide ? Continue on insulin sliding scale moderate intensity ? Check echo ? Check lactic acid - Check ABG ? Check blood culture, urine culture, sputum gram stain culture ? We will cover for pneumonia versus UTI with ceftriaxone and azithromycin at this time. Check procalcitonin ? Continue on aspirin. Obtain records from [facility]. Full Code DVT PPX: Heparin Sub c Family present at bedside. Both daughters Jenise and Lara are there. Attestations Medical Necessity Statement*: Will cross greater than 2 midnight stay for work-up and management of heart failure, ROMANA, UTI Coding Level of Care Code Acute Crime Scene Photographer for g Fwd Diagnoses Type 2 diabetes mellitus with hyperglycemia E11.65 Diabetes mellitus termite control service representative insulin use: without alf use Former smoker Z87.891 Essential (primary) hypertension I10 Acid reflux K21.9 Esophagitis presence: without esophagitis Dementia F03.90 Heart failure I50.9 Acute kidney injury N17.9 Leukocytosis D72.829 Pacemaker Z95.0 Sepsis A41.9 Anemia D64.9
[2022-03-29] MEDS: heparin 5,000 unit/mL INJ 1 mL 5000 UNIT SUBCUT (19:38)
--- NOTE | 2022-03-29 19:43 | CTR_ITS ---
PROCEDURE INFORMATION: Exam: CT Chest Without Contrast; Diagnostic Exam date and time: 03/29/2022 8:37 PM Age: 82 years old Clinical indication: Shortness of breath; Prior surgery; Surgery type: Pacemaker. Hernia repair. Patient HX: C/O SOB. Elevated wbc. Bacteriuria. ; Additional info: Dwayne, UTI, pna vs atelectasis, R/O post renal cause, pneumonia TECHNIQUE: Imaging protocol: Diagnostic computed tomography of the chest without contrast. Radiation optimization: All CT scans at this facility use at least one of these dose optimization techniques: automated exposure control; mA and/or kV adjustment per patient size (includes targeted exams where dose is matched to clinical indication); or iterative reconstruction. COMPARISON: CR XR chest 1V portable [id number] 03/29/2022 3:14 PM RADIATION DOSE METRICS: Total DLP (mGy-cm): 1255.17 FINDINGS: Tubes, catheters and devices: Single lead permanent pacemaker is in place with lead tip at right ventricular apex. Lungs: Dependent pulmonary parenchymal opacities noted bilaterally; there is probable component of atelectasis but coexisting infiltrate may also be present in these regions. Smaller patches of infiltrate in right upper lobe can relate to edema or infectious/inflammatory process. Pleural spaces: Moderate to large right pleural fluid and small left pleural fluid. Heart: Cardiomegaly. Dense coronary arterial calcifications are noted. Dense aortic valvular calcifications. Lymph nodes: Calcified granulomatous changes are noted in mediastinal and hilar lymph nodes. Vasculature: Aortic calcifications are noted. No findings of aneurysm or mediastinal hemorrhage. Bones/joints: No acute fracture. Soft tissues: Unremarkable. PROCEDURE INFORMATION: Exam: CT Abdomen And Pelvis Without Contrast Exam date and time: 03/29/2022 8:37 PM Age: 82 years old Clinical indication: Shortness of breath; Prior surgery; Surgery type: Pacemaker. Hernia repair. Patient HX: C/O SOB. Elevated wbc. Bacteriuria. ; Additional info: Dwayne, UTI, pna vs atelectasis, R/O post renal cause, pneumonia TECHNIQUE: Imaging protocol: Computed tomography of the abdomen and pelvis without contrast. Radiation optimization: All CT scans at this facility use at least one of these dose optimization techniques: automated exposure control; mA and/or kV adjustment per patient size (includes targeted exams where dose is matched to clinical indication); or iterative reconstruction. COMPARISON: CR XR chest 1V portable [id number] 03/29/2022 3:14 PM RADIATION DOSE METRICS: Total DLP (mGy-cm): 1255.17 FINDINGS: Liver: Normal. No mass. Gallbladder and bile ducts: Layering high density material in gallbladder can represent stones or milk of calcium. Pancreas: Pancreas is atrophic. Spleen: Normal. No splenomegaly. Adrenal glands: Normal. No mass. Kidneys and ureters: Normal. No hydronephrosis. Stomach and bowel: Relatively prominent stool at rectosigmoid; early impaction difficult to exclude. Appendix: No evidence of appendicitis. Intraperitoneal space: Some motion degradation through upper abdomen. Vasculature: Atheromatous changes are noted. Mild dilation of distal aorta to 2.6 cm. Lymph nodes: Unremarkable. No enlarged lymph nodes. Urinary bladder: Mojica catheter is well positioned in urinary bladder. Reproductive: Unremarkable as visualized. Bones/joints: No acute fracture. Soft tissues: Mild anasarca. CT/[place] [id number] IMPRESSION: Bilateral pleural effusions right greater than left. Dependent pulmonary parenchymal opacities noted bilaterally; there is probable component of atelectasis but coexisting infiltrate may also be present in these regions. Smaller patches of infiltrate in right upper lobe can relate to edema or infectious/inflammatory process. Findings suspicious for aortic valvular stenosis. Additional details as above. IMPRESSION: No findings of obstructive uropathy. Mojica catheter is well positioned in urinary bladder. Relatively prominent stool at rectosigmoid; early impaction difficult to exclude. Layering high density material in gallbladder can represent stones or milk of calcium. Motion degradation in upper abdomen. Additional details as above.
[2022-03-29 20:14] LABS: Iron 18 ug/dL (59-158); Percent Saturation 7.7 % (20-50); Total Iron Binding Capacity 233 mcg/dl; Unsaturated Iron Binding 215 ug/dL (112-347)
[2022-03-29 20:22] LABS: Chol HDL Ratio 5.95 mg/dL (1.0-5.00); Cholesterol 125 mg/dL (0-200); Ferritin 141 ng/mL (30-400); HDL Cholesterol 21 mg/dL (60-100); Iron 17 ug/dL (59-158); LDL Cholesterol Calculated 87 mg/dL (50-129); LDL HDL Ratio 4.14 RATIO (0.00-3.22); Thyroid Stimulating Hormone 1.92 uIU/mL (0.27-4.20); Triglycerides 83 mg/dL (0-150)
[2022-03-29 20:29] LABS: Estmated Average Glucose 117; Hemoglobin A1C 5.7 % (4.0-6.0); Lactic Sepsis W/Reflex 3.4 mmol/L (0.5-2.2)
--- NOTE | 2022-03-29 21:10 | ECG_ITS ---
[facility] Test Date: 2022-03-29 Pat Name: Akash Pichardo Department: Room: Gender: Male Job Analyst: : 1940 Requested By: Henrik Soto Order Number: [id number] Ragini MD: Charis Garcia M.D. Measurements Intervals [place] Rate: 68 P: MN: QRS: 41 QRSD: 94 T: -75 QT: 453 QTc: 485 Interpretive Statements Atrial fibrillation with a demand V paced rhythm INCOMPLETE RIGHT BUNDLE BRANCH BLOCK [90+ ms QRS DURATION, TERMINAL R IN V1/V2, 40+ ms S IN I/aVL/V4/V5/V6] SEPTAL MYOCARDIAL INFARCTION , OF INDETERMINATE AGE [40+ ms Q WAVE IN V1/V2] MODERATE T-WAVE ABNORMALITY, CONSIDER ANTEROLATERAL ISCHEMIA [-0.1+ mV T WAVE IN V3-V6] MODERATE T-WAVE ABNORMALITY, CONSIDER INFERIOR ISCHEMIA [-0.1+ mV T WAVE IN II/aVF] Compared to ECG 03/29/2022 17:04:00 Myocardial infarct finding now present T-wave abnormality still present Possible ischemia still present Electronically Signed On 03-30-2022 19:21:07 CDT by Charis Garcia M.D. [id number]
--- NOTE | 2022-03-29 21:40 | USCV_ITS ---
Akash Pichardo Age: 82 Gender: M : 1940 Exam Date: 03/29/2022 23:17 Ordering Phys: Shanna Chase MD Technologist: Rodolfo Durbin Exam Location: [facility] Indication: NEW HEART FAILURE BP: 155 / 62 HR: 72 Rhythm: Sinus Technical Quality: Adequate MEASUREMENTS (Male / Female) Normal Values 2D ECHO LV Diastolic Diameter PLAX 4.2 cm 4.2 - 5.9 / 3.9 - 5.3 cm LV Systolic Diameter PLAX 3.9 cm IVS Diastolic Thickness 1.6 cm 0.6 - 1.0 / 0.6 - 0.9 cm IVS Systolic Thickness 0.8 cm LVPW Diastolic Thickness 1.2 cm 0.6 - 1.0 / 0.6 - 0.9 cm LVPW Systolic Thickness 1.3 cm LV Ejection Fraction 2D Teich 14.6 % LV Ejection Fraction MOD 2C 26.1 % LV Ejection Fraction 2C AL 26.8 % LA Diameter 4.6 cm LA Width 5.3 cm LA Height 6.6 cm RA Width 6.0 cm RA Height 7.6 cm IVC Diameter 2.4 cm M-MODE Aortic Annulus Diameter 3.0 cm LA Ao Ratio MM 1.7 MV E Point Septal Separation 0.8 cm DOPPLER AV Peak Velocity 303.0 cm/s LVOT Peak Velocity 53.0 cm/s MV Area PHT 4.3 cm squared Mitral E to A Ratio 1.4 MV E' Velocity 40.5 cm/s Mitral E to MV E' Ratio 5.9 Mitral E to LV E' Lateral Ratio 5.7 Mitral E to LV E' Septal Ratio 6.2 TR Peak Velocity 215.0 cm/s TR Peak Gradient 18.5 mmHg TR Mean Velocity 156.1 cm/s TR Mean Gradient 10.9 mmHg TR Velocity Time Integral 59.2 cm Right Atrial Pressure 8.0 mmHg Pulmonary Artery Systolic Pressu 26.5 mmHg PV Peak Velocity 124.0 cm/s FINDINGS Left Ventricle Dyskinetic mid and apical septum and anteroseptal segments. Diffuse hypokinesis of the inferolateral and apical segments. Overall LV ejection fraction around 27%. Mildly dilated LV cavity Right Ventricle The right ventricle is normal in size and function. Right Atrium Moderately increased right atrial size. Left Atrium Moderately increased left atrial size. Mitral Valve Moderate mitral valve regurgitation. Aortic Valve [id number]-wc-tsiyjshg aortic regurgitation with a possibly moderate aortic valve stenosis.. The peak velocity across the aortic valve was 3.03 m/s with a peak gradient of 37 mmHg the mean gradient was 13 mmHg Tricuspid Valve Tcoo-qx-ahjpswpj tricuspid valve regurgitation. Estimated pulmonary artery peak systolic pressure 27 mmHg Pulmonic Valve Pulmonic valve not well visualized. Pericardium No pericardial effusion. Aorta Normal aortic annulus size. IVC Mildly dilated IVC. CONCLUSIONS Multiple wall motion abnormalities with diminished left ventricular ejection fraction of 27%. Mildly dilated LV cavity. Moderate biatrial enlargement. Possibly moderate aortic valve stenosis-valve area calculation is misleading.(The peak velocity across the aortic valve was 3.03 m/s with a peak gradient of 37 mmHg the mean gradient was 13 mmHg. ) Dfek-vy-efsjhciw tricuspid valve regurgitation. Estimated pulmonary artery peak systolic pressure 27 mmHg Mildly dilated IVC. There is no pericardial effusion. There are no intracardiac masses. No previous study is available for comparison. Dr Charis Garcia MD FACC (Electronically Signed) Final Date: 31 March 2022 18:56 S
[2022-03-29 21:53] LABS: Reflex Lactate Order REFLEX LACTIC ORDERD
[2022-03-29 21:56] LABS: Troponin 5 6HR 33.16 ng/L (0-15); Troponin 5 6HR Delta -9.84 ng/L (0-12)
[2022-03-29 22:08] LABS: SARS Covid-2 Antigen Negative (Negative)
--- NOTE | 2022-03-29 23:20 | PM.CONSULT ---
Providers/Reason For Consult Consulting Physician/Specialty*: DELBERT Garcia MD/cardiology Reason for Consult*: Patient with respiratory distress/markedly elevated BNP Requesting Physician: Dr. Chase Attending Physician: Shanna Chase MD Primary Care Provider: Henrik Morris History of Present Illness History of Present Illness Akash Pichardo is a 82 year old male, brought to the emergency room with complaints of progressive shortness of breath and altered mental status, over the last 5 days. Most of the information is from the medical staff and the medical records. No family numbers are available at the time of my dictation. This patient has a history of uncontrolled blood pressure, type 2 diabetes, dementia and permanent pacemaker implantation for? Symptomatic bradycardia. He is being followed by a pay station department manager in [place]. He lives alone. He started having shortness of breath and generalized weakness a week ago. The symptoms were progressively getting worse. He recently finished a course of antibiotic treatment for UTI. He was treated with doxycycline. He was found to have mild aortic valve stenosis with a normal ejection fraction by echocardiogram few months ago, done at the [facility] in [place]. He has no documented history for heart failure. Patient was found to be hypoxic in the emergency room. He was requiring 4 L of oxygen by nasal cannula. His pacemaker was found to be functioning okay. He was found to be confused and disoriented. The CT of the chest revealed possible infiltrate/heart failure. He was found to have a low-grade fever and elevated white cell count. Has features of UTI. It is unclear as to whether he had any fever at home or not. Review of Systems Narrative: CONSTITUTIONAL: Possible low-grade fever/altered mental status EYES: No blurring of vision or other visual disturbances lately. ENT: No hoarseness of voice, auditory disturbances or sore throat. CARDIOVASCULAR: As mentioned above. RESPIRATORY: Progressive shortness of breath as mentioned above GASTROINTESTINAL: No hematemesis or melena. GENITOURINARY: No dysuria or hematuria. INTEGUMENTARY: No skin rashes or history of skin cancer. NEURO: History of dementia PSYCHIATRIC: No history of psychosis or major depression. HEMATOLOGIC: No bleeding disorders or significant anemia. ENDOCRINE: History of type 2 diabetes MUSCULOSKELETAL: No recent joint pain or swelling. ALLERGY/IMMUNOLOGY: As mentioned above. Medications/Allergies Home Medications Medication Instructions Recorded Confirmed Last Taken Type aspirin 81 mg tablet,delayed 81 mg PO QAM 04/06/20 03/29/22 03/29/22 07:00 History release loratadine 10 mg tablet 10 mg PO DAILY 04/06/20 03/29/22 Unknown History amlodipine 5 mg tablet 5 mg PO DAILY #30 tabs 09/07/21 03/29/22 Unknown Rx furosemide 20 mg tablet (Lasix) 20 mg PO QAM #30 tabs 09/07/21 03/29/22 Unknown Rx lisinopril 20 mg tablet 20 mg PO BID 30 days #60 tabs 09/07/21 03/29/22 Unknown Rx metformin 500 mg tablet,extended 500 mg PO BID #60 tabs 09/07/21 03/29/22 Unknown Rx release 24 hr omeprazole 20 mg capsule,delayed 20 mg PO DAILY #30 caps 09/07/21 03/29/22 Unknown Rx release glipizide 2.5 mg tablet, extended 2.5 mg PO BID #60 tabs 03/22/22 03/29/22 Unknown Rx release 24 hr potassium chloride 10 mEq 10 meq PO DAILY 30 days #30 tabs 03/22/22 03/29/22 Unknown Rx tablet,extended release L.acidop,casei,lactis,rham-B.lact,berna 1 cap PO DAILY PRN ANTIBIOTICS 03/29/22 03/29/22 Unknown History 625 mg (10 billion cell) capsule (Advanced Probiotic) carvedilol 25 mg tablet 25 mg PO BID 03/29/22 03/29/22 Unknown History clonidine 0.3 mg/24 hr weekly 1 patch transdermal Q7D 03/29/22 03/29/22 03/28/22 History transdermal patch cranberry extract 200 mg capsule 200 mg PO DAILY 03/29/22 03/29/22 Unknown History doxycycline hyclate 100 mg tablet 100 mg PO BID 03/29/22 03/29/22 03/26/22 History FINISHED 03/26/22 furosemide 80 mg tablet 80 mg PO QAM 03/29/22 03/29/22 Unknown History potassium chloride 20 mEq 20 meq PO BEDTIME 03/29/22 03/29/22 Unknown History tablet,extended release saw palmetto 450 mg capsule 450 mg PO DAILY 03/29/22 03/29/22 Unknown History sertraline 50 mg tablet (Zoloft) 50 mg PO QAM 03/29/22 03/29/22 Unknown History Allergies Allergy/AdvReac Type Severity Reaction Status Date / Time Sulfa (Sulfonamide Allergy ALGY-Hives Verified 03/29/22 16:35 Antibiotics) Current Medications Generic Name Dose Route Start Last Admin Trade Name Kat PRN Reason Stop Dose Admin Heparin Sodium (Porcine) 5,000 unit 03/29/22 19:30 03/29/22 19:38 Heparin 5,000 Unit/Ml Inj 1 Ml SUBCUT 5,000 unit Q12H NICOLE Administration PFSH Acute PFSH: Medical History Acid reflux Dementia Environmental and seasonal allergies Essential (primary) hypertension Former smoker Hearing loss Heart murmur Type 2 diabetes mellitus with hyperglycemia Surgical History History of appendicitis right side History of hernia repair Family History Other Cancer Dementia Diabetes Hypertension Denies family history of Bleeding disorder Lung disease Stroke Social History Smoking and tobacco status: former smoker Second hand smoke exposure: No Smoking risk assessment/counseling performed?: No Alcohol intake: former Desire information about alcohol rehabilitation?: No Counseling given: No Desire information about substance/drug rehabilitation?: No Counseling given: No Adopted: No Caregiver/support person: No Lives independently: Yes Household members: none Housing: House Marital status: / Number of children: 5 service: No Current occupational status: retired History of recent travel: No Current gender identity: Male Vitals/I&O/Wt Last Vital Signs Temp 100.0 F H 03/29/22 20:00 Pulse 70 03/29/22 20:00 Resp 26 H 03/29/22 20:00 BP 114/72 03/29/22 20:00 Pulse Ox 96 03/29/22 20:00 O2 Del Method 03/29/22 20:00 O2 Flow Rate 4 03/29/22 20:00 03/29/22 03/29/22 03/30/22 14:59 22:59 06:59 Intake Total 50 / 50 Balance 50 / 50 Weight last 48 hrs Weight 170 lb Physical Exam Narrative: GENERAL: The patient is somewhat agitated, confused and disoriented. HEENT: No significant pallor, icterus or lymphadenopathy.Oral cavity: There are no mucous membrane lesions. NECK: Trachea appears to be central. No masses noted. No JVD or thyromegaly appreciated. RESPIRATORY: Chest is symmetrical. No intercostals muscle retraction or any accessory muscle activation. There is no chest wall tenderness. Breath sounds are heard bilaterally. Few fine and coarse crackles at the bases BREASTS: Deferred. HEART: The heart sounds are normal. No S3 or S4. Ejection stock murmur of a grade 4/6 in the aortic area. No diastolic murmurs. ABDOMEN: No vessel pulsations or distention. No tenderness. No organomegaly appreciated. Bowel sounds are normally heard. : Deferred. RECTAL: Deferred. LYMPHATIC: No lymphadenopathy noted in the neck. EXTREMITIES: No edema or cyanosis. No clubbing. MUSCULOSKELETAL: No acute joint deformities or swelling SKIN: There are no significant rashes or ecchymosis NEUROPSYCHIATRIC: Patient is somewhat agitated, confused and disoriented. No focal motor deficits. Urinary Catheter Management: Mojica: Cath Placed During This Visit: yes Urinary Catheter Date of Insertion: 03/29/22 Urinary Catheter Time of Insertion: 20:10 Data : 03/29/22 15:36 03/29/22 15:36 Other Labs: Laboratory Last Values WBC 16.0 10^3/uL (4.0-10.0) H 03/29/22 15:36 RBC 3.47 10^6/uL (4.1-5.3) L 03/29/22 15:36 Hgb 10.2 g/dL (11.7-16.6) L 03/29/22 15:36 Hct 32.5 % (42.0-52.0) L 03/29/22 15:36 MCV 93.7 fl (80-94) 03/29/22 15:36 MCH 29.4 pg (28.0-34.0) 03/29/22 15:36 MCHC 31.4 g/dL (30.0-36.0) 03/29/22 15:36 RDW 15.9 % (12.1-15.1) H 03/29/22 15:36 Plt Count 279 10^3/cmm (130-400) 03/29/22 15:36 MPV 10.9 fL (7.4-10.4) H 03/29/22 15:36 Neut % (Auto) 78.8 % 03/29/22 15:36 Lymph % (Auto) 12.3 % 03/29/22 15:36 Quay % (Auto) 8.2 % 03/29/22 15:36 Eos % (Auto) 0.0 % 03/29/22 15:36 Baso % (Auto) 0.1 % 03/29/22 15:36 Neut # (Auto) 12.65 10^3/uL (1.8-7.7) H 03/29/22 15:36 Lymph # (Auto) 2.0 10^3/uL (0.8-4.8) 03/29/22 15:36 Quay # (Auto) 1.3 10^3/uL (0.2-0.9) H 03/29/22 15:36 Eos # (Auto) 0.0 10^3/uL (0.0-0.8) 03/29/22 15:36 Baso # (Auto) 0.0 10^3/uL (0.0-0.1) 03/29/22 15:36 Nucleated RBC % (auto) 0.2 % 03/29/22 15:36 Nucleated RBCs # 0.0 /100WBC 03/29/22 15:36 Sodium 132 mmol/L (136-145) L 03/29/22 15:36 Potassium 4.3 mmol/L (3.5-5.1) 03/29/22 15:36 Chloride 94 mmol/L (98-107) L 03/29/22 15:36 Carbon Dioxide 18 mmol/L (22-29) L 03/29/22 15:36 Anion Gap 24.3 (5-19) H 03/29/22 15:36 BUN 47 mg/dL (8-23) H 03/29/22 15:36 Creatinine 1.5 mg/dL (0.7-1.2) H 03/29/22 15:36 GFR Calculation Not Reportable 03/29/22 15:36 Glucose 211 mg/dL (65-115) H 03/29/22 15:36 POC Glucose 217 mg/dL (70-110) H 03/29/22 15:34 Estimat Average Glucose 117 03/29/22 19:50 Hemoglobin A1c 5.7 % (4.0-6.0) 03/29/22 19:50 Calculated Osmolality 293 mOsm/kg (285-295) 03/29/22 15:36 Lactic Acid 3.4 mmol/L (0.5-2.2) H 03/29/22 19:50 Calcium 9.0 mg/dL (8.5-10.5) 03/29/22 15:36 Iron 17 ug/dL (59-158) L 03/29/22 17:34 Iron 18 ug/dL (59-158) L 03/29/22 17:34 TIBC 233 mcg/dl 03/29/22 17:34 % Saturation 7.7 % (20-50) L 03/29/22 17:34 Unsat Iron Binding 215 ug/dL (112-347) 03/29/22 17:34 Ferritin 141 ng/mL (30-400) 03/29/22 17:34 Total Bilirubin 0.5 mg/dL (0.15-1.2) 03/29/22 15:36 AST 36 U/L (0-40) 03/29/22 15:36 ALT 39 U/L (0-41) 03/29/22 15:36 Alkaline Phosphatase 69 IU/L (40-130) 03/29/22 15:36 Troponin T Baseline 43 ng/L (0-15) H 03/29/22 15:36 Troponin T 120 Minute 37.70 ng/L (0-15) H 03/29/22 17:34 Delta Troponin T -5.30 ABS# (0-10) L 03/29/22 17:34 Troponin T Hi Sens 6Hr 33.16 ng/L (0-15) H 03/29/22 21:25 Troponin T Hi Sens 6Hr Delta -9.84 ng/L (0-12) L 03/29/22 21:25 NT-Pro-B Natriuret Pep > 61534 pg/mL (0-450) H 03/29/22 15:36 Total Protein 6.8 g/dL (6.6-8.7) 03/29/22 15:36 Albumin 4.3 g/dL (3.5-5.2) 03/29/22 15:36 Globulin 2.5 g/dL (1.3-4.6) 03/29/22 15:36 Triglycerides 83 mg/dL (0-150) 03/29/22 17:34 Cholesterol 125 mg/dL (0-200) 03/29/22 17:34 LDL Cholesterol, Calc 87 mg/dL (50-129) 03/29/22 17:34 HDL Cholesterol 21 mg/dL (60-100) L 03/29/22 17:34 LDL/HDL Ratio 4.14 RATIO (0.00-3.22) H 03/29/22 17:34 Cholesterol/HDL Ratio 5.95 mg/dL (1.0-5.00) H 03/29/22 17:34 Procalcitonin 0.20 ng/mL (0-0.5) 03/29/22 17:34 TSH 1.92 uIU/mL (0.27-4.20) 03/29/22 17:34 Urine Color Yellow (Yellow) 03/29/22 17:35 Urine Appearance Clear (CLEAR) 03/29/22 17:35 Urine pH 5 (5-7) 03/29/22 17:35 Ur Specific [place] 1.020 (1.005-1.030) 03/29/22 17:35 Urine Protein 1+ (Negative) H 03/29/22 17:35 Urine Glucose (UA) Norm (Normal) 03/29/22 17:35 Urine Ketones Negative (Negative) 03/29/22 17:35 Urine Blood 2+ (Negative) H 03/29/22 17:35 Urine Nitrate Negative (Negative) 03/29/22 17:35 Urine Bilirubin Neg (Negative) 03/29/22 17:35 Urine Urobilinogen Norm mg/dL (Negative) 03/29/22 17:35 Ur Leukocyte Esterase 1+ (Negative) H 03/29/22 17:35 Urine RBC 0-4 /hpf (0-2) H 03/29/22 17:35 Urine WBC 55-80 /hpf (0-5) H 03/29/22 17:35 Ur Squamous Epith Cells 0-4 /hpf (0-5) H 03/29/22 17:35 Amorphous Sediment Not Reportable 03/29/22 17:35 Urine Bacteria None /hpf (NONE) 03/29/22 17:35 SARS-CoV-2 Ag (Rapid) Negative (Negative) 03/29/22 21:31 Micro: Microbiology 03/29/22 21:25 Blood Culture - Preliminary Blood SPECIMEN COLLECTED 03/29/22 19:50 Blood Culture - Preliminary Blood SPECIMEN COLLECTED Echo: My impression: Moderate diffuse hypokinesia of the septum, anteroseptum and the LV apex. Ejection fraction around 40%. Pacemaker wire was noted in the right ventricle. Moderate mitral and tricuspid regurgitation. Mild aortic regurgitation. Moderate aortic valve stenosis EKG 1: My Interpretation: Demand V pacing with the possible underlying atrial fibrillation. Nonspecific T wave changes in the inferior and anterolateral leads EKG computer-generated impression: Chest X-Ray 03/29/22 14:49 Impression: 1. Bibasilar pulmonary opacities which may represent atelectasis, pneumonia and effusion. 2. Cardiomegaly. Chest/Abdomen/Pelvis CT 03/29/22 19:43 IMPRESSION: Bilateral pleural effusions right greater than left. Dependent pulmonary parenchymal opacities noted bilaterally; there is probable component of atelectasis but coexisting infiltrate may also be present in these regions. Smaller patches of infiltrate in right upper lobe can relate to edema or infectious/inflammatory process. Findings suspicious for aortic valvular stenosis. Additional details as above. IMPRESSION: No findings of obstructive uropathy. Mojica catheter is well positioned in urinary bladder. Relatively prominent stool at rectosigmoid; early impaction difficult to exclude. Layering high density material in gallbladder can represent stones or milk of calcium. Motion degradation in upper abdomen. Additional details as above. A&P Assessment and plan (1) Congestive heart failure: Patient has clinical features of congestive heart failure with a reduced LV ejection fraction of 40%. The drop in the LV ejection fraction appears to be new. Is very possible that the patient may have had a recent coronary event causing LV dysfunction and heart failure. He may be treated carefully with IV diuretics. Status: Acute (2) Cardiomyopathy: Most likely the patient may have underlying coronary artery disease. This needs to be further evaluated. Status: Acute (3) Atrial fibrillation: Patient appears to be in atrial fibrillation with a controlled ventricular rate. He does not appear to be on any oral anticoagulant at this time. It may be appropriate to start him on IV heparin. Status: Acute (4) Pacemaker: The pacemaker function appears to be appropriate. Status: Acute (5) Abnormal EKG: The EKG changes may suggest inferior and anterolateral wall ischemia. Status: Acute (6) Acute kidney injury: Patient is a kidney function was in the normal range prior to this. Most likely the heart failure/sepsis might be contributing to this. Status: Acute (7) Sepsis: UTI/possible pneumonia I will be causing this. Status: Acute (8) Lactic acidosis: This could be multifactorial. I may hold off on the metformin at this point. The kidney function will be closely monitored. Status: Acute Plan Other problems are Aortic valve stenosis Anemia Electrolyte abnormalities Type 2 diabetes UTI/sepsis Dementia patient may be treated with IV heparin. Careful IV diuresis would be appropriate. I also may start him on aspirin, beta-tavo and statin. Based on his clinical progress, further recommendations will be made. We will try to get all the medical records from [place]. Based on the clinical progress and the review of his medical records, further recommendations will be made. Thank you for the opportunity to evaluate this patient and make these recommendations Coding Level of Care Code Acute Marine Underwriter for Ирина Fwd History Detailed Medical Decision Making High Complexity Diagnoses Congestive heart failure I50.9 Cardiomyopathy I42.9 Atrial fibrillation I48.91 Pacemaker Z95.0 Abnormal EKG R94.31 Acute kidney injury N17.9 Sepsis A41.9 Lactic acidosis E87.2
[2022-03-29 23:31] LABS: Glucose Point of Care 169 mg/dL (70-110)
[2022-03-30] VITALS (68 sets, daily range): BP systolic 90–160; BP diastolic 51–97; PULSE 65–79; RESP 15–40; TEMP 37–38.4; O2SAT 69–100
[2022-03-30 00:02] LABS: ABG PH Result 7.53 (7.35-7.45); Base Excess ABG -5.4 mmol/L (-2.0-2.0); Blood Gas Sample Type Arterial; Carboxyhemoglobin 2.1 %THgb (0.4-20.1); HCO3 ABG 16.1 mmol/L (22-26); HGB O2 Sat 91.5 % (95-100); Ionized Calcium Level - ABG 1.1 mmol/L (1.1-1.4); Methemoglobin 0.1 % (0.4-1.5); Oxygen Saturation ABG 93.5; PO2 ABG 59.8 mmHg (80.0-100.0); Potassium Level - ABG 3.4 mmol/L (3.5-5.0); Total Hemoglobin 8.8 g/dL (14-18)
[2022-03-30 00:11] LABS: Alveolar-Arterial Oxygen Gradi 14.8 mmHg (5-10); Blood Gas Operator Identificat ED; Blood Gas Sample Site Brachial, left; Oxygen Device NC
[2022-03-30 00:12] LABS: ABG PCO2 19.4 mmHg (35-45)
--- NOTE | 2022-03-30 01:12 | CTR_ITS ---
PROCEDURE INFORMATION: Exam: CT Head Without Contrast Exam date and time: 03/30/2022 1:36 AM Age: 82 years old Clinical indication: Altered mental status/memory loss; Confusion or disorientation; Patient HX: Worsening confusion. ; Additional info: AMS TECHNIQUE: Imaging protocol: Computed tomography of the head without contrast. Radiation optimization: All CT scans at this facility use at least one of these dose optimization techniques: automated exposure control; mA and/or kV adjustment per patient size (includes targeted exams where dose is matched to clinical indication); or iterative reconstruction. COMPARISON: No relevant prior studies available. RADIATION DOSE METRICS: Total DLP (mGy-cm): 819.98 FINDINGS: Brain: Mild periventricular white matter low densities are most consistent with chronic small vessel ischemic change. No findings of intracranial hemorrhage. Moderate cerebral atrophy. Cerebral ventricles: No ventriculomegaly. Paranasal sinuses: Paranasal sinus retention cyst noted. Mastoid air cells: Visualized mastoid air cells are well aerated. Dental: Dental caries and periodontal disease noted. Bones/joints: No acute findings. Soft tissues: Unremarkable. CT/CT head wo con* [id number] IMPRESSION: No acute intracranial abnormality.
[2022-03-30 01:18] LABS: INR 1.68 (0.8-1.2)
[2022-03-30] MEDS: haloperidol inj 5 mg/mL INJ 1 mL 2 MG IM (01:22)
[2022-03-30] MEDS: cloNIDine 0.3 mg/24 hr Patch 1 PATCH TRANSDERMA (01:23)
[2022-03-30 01:27] LABS: Lactic Acid level (Lactate) 2.6 mmol/L (0.5-2.2)
[2022-03-30 01:28] LABS: Alanine Aminotransferase 40 U/L (0-41); Albumin Level 3.5 g/dL (3.5-5.2); Alkaline Phosphatase 57 IU/L (40-130); Anion Gap 20.6 (5-19); Aspartate Amino Transferase 37 U/L (0-40); Blood Urea Nitrogen 50 mg/dL (8-23); Calcium 8.5 mg/dL (8.5-10.5); Carbon Dioxide 18 mmol/L (22-29); Chloride 94 mmol/L (98-107); Creatine Phosphokinase 65 U/L (39-308); Creatinine Clr Calc Pharmacy 43.7691; Globulin 2.5 g/dL (1.3-4.6); Glucose 165 mg/dL (65-115); Osmolality Calculated 285 mOsm/kg (285-295); Potassium 3.6 mmol/L (3.5-5.1); Sodium 129 mmol/L (136-145); Total Bilirubin 0.6 mg/dL (0.15-1.2)
[2022-03-30] MEDS: azithromycin 500 MG in sodium chloride 0.9% 250 ML 250 MG IV (02:12)
[2022-03-30] MEDS: sodium chloride 0.9% 1,000 ML 50 ML IV (02:14)
[2022-03-30] MEDS: heparin 5,000 unit/mL INJ 1 mL IV (03:22)
[2022-03-30] MEDS: heparin drip 25,000 UNIT/500 ML PREMIX 21.59 UNIT IV (03:23)
[2022-03-30 03:36] LABS: Adenovirus Not Detected (NOT DETECT); Chlamydia Pneumoniae Not Detected (NOT DETECT); Coronavirus 229E,HKU1,NL63,OC4 Not Detected (NOT DETECT); Human Metapneumovirus Not Detected (NOT DETECT); Human Rhinovirus/Enterovirus Not Detected (NOT DETECT); Influenza A Not Detected (NOT DETECT); Influenza A H1 Not Detected (NOT DETECT); Influenza A H1-2009 Not Detected (NOT DETECT); Influenza A H3 Not Detected (NOT DETECT); Influenza B Not Detected (NOT DETECT); Mycoplasma Pneumoniae Not Detected (NOT DETECT); Parainfluenza Virus Type 1 Not Detected (NOT DETECT); Parainfluenza Virus Type 2 Not Detected (NOT DETECT); Parainfluenza Virus Type 3 Not Detected (NOT DETECT); Parainfluenza Virus Type 4 Not Detected (NOT DETECT); Respiratory Syncytial Virus A Not Detected (NOT DETECT); Respiratory Syncytial Virus B Not Detected (NOT DETECT); SARS-COV-2 Not Detected (NOT DETECT)
--- NOTE | 2022-03-30 03:47 | PC.NURSE ---
Shortly after patient arrival, this RN called and spoke with Sister of patient, Alisa Vilchis . Per sister, patient lives by self and is normally oriented to self, location, and time. Sister reports that patients children stop by 5+ times per day for checkups and medications. Patient is [employer] per Sister. Sister mentioned that the breakdown to patients scrotum and coccyx & sacrum is new and they believe it may be related to patient applying some medicated cream but patient was unable to tell family what cream he applied. Per sister patient normally has amazing mcfp memory and poor short term memory. Sister also relayed that she lives approximately 5 minutes from hospital and can be there in a heartbeat. She related that patient was brought in by daughter Jenise. She was unclear on advanced directives but didn't believe patient had an advanced directive. This RN called and spoke with daughter Jenise who was able to provide accurate medication list to this RN, she was able to relay that patient does not have a POA or advanced directive but was clear on patient being full code. Daughter related similar information to sister stating that patient is normally oriented but becomes very confused when sick. When asked about breakdown mentioned above, daughter states she found it yesterday, 03/28/22 when giving patient a bath. Daughter theorized that patient put a medicated cream on or may have used a clorox wipe because we keep them in the bathroom . Daughter provided verbal consent for Thoracentesis which was witnessed by landscaping supervisor. Prior to giving consent, daughter had long pauses where she would not speak, no information was given unless specifically asked. Breakdown mentioned above does not appear new with areas in various stages of healing. Spoke with Dr. Garcia & Dr. Chase extensively regarding POC for patient and next steps, coordinating patient care throughout shift.
--- NOTE | 2022-03-30 04:57 | PC.NURSE ---
Confirmation Your report has been submitted Confirmation Number: [id number] Date: 03/30/2022 4:56 AM Thank you for submitting your online report. Please partner with [facility] and help keep our Adult Abuse and Neglect Hotline open and available to the public. If you need to follow-up with your report, please reach out to the appropriate local office.
[2022-03-30 06:24] LABS: Basophils % 0.1 %; Hemoglobin 8.7 g/dL (11.7-16.6); Lymphocytes # 1.6 10^3/uL (0.8-4.8); Lymphocytes % 7.9 %; Mean Corpuscular HGB Conc 33.5 g/dL (30.0-36.0); Mean Corpuscular Hemoglobin 28.9 pg (28.0-34.0); Mean Corpuscular Volume 86.4 fl (80-94); Mean Platelet Volume 11.4 fL (7.4-10.4); Monocytes # 1.5 10^3/uL (0.2-0.9); Monocytes % 7.5 %; Neutrophils # 17.11 10^3/uL (1.8-7.7); Neutrophils % 83.8 %; Nucleated Red Blood Cells % 0.1 %; Platelet Count 220 10^3/cmm (130-400); Red Blood Count 3.01 10^6/uL (4.1-5.3); Red Cell Distribution Width 15.4 % (12.1-15.1); White Blood Count 20.4 10^3/uL (4.0-10.0)
[2022-03-30 07:04] LABS: Alanine Aminotransferase 43 U/L (0-41); Albumin Level 3.4 g/dL (3.5-5.2); Alkaline Phosphatase 54 IU/L (40-130); Anion Gap 23.5 (5-19); Aspartate Amino Transferase 43 U/L (0-40); Blood Urea Nitrogen 54 mg/dL (8-23); Calcium 8.4 mg/dL (8.5-10.5); Carbon Dioxide 16 mmol/L (22-29); Chloride 96 mmol/L (98-107); Globulin 2.2 g/dL (1.3-4.6); Glucose 155 mg/dL (65-115); Magnesium 1.9 mg/dL (1.7-2.3); Osmolality Calculated 292 mOsm/kg (285-295); Phosphorus 3.7 mg/dL (2.5-4.5); Potassium 3.5 mmol/L (3.5-5.1); Sodium 132 mmol/L (136-145); Total Bilirubin 0.7 mg/dL (0.15-1.2); Total Protein 5.6 g/dL (6.6-8.7)
[2022-03-30 07:20] LABS: Glucose Point of Care 163 mg/dL (70-110)
--- NOTE | 2022-03-30 07:21 | PC.NURSE ---
Patient's daughter, Jenise, called and changed her mind about consent for thoracentesis. She revokes her decision and would like to discuss the procedure with her siblings before making any decisions.
--- NOTE | 2022-03-30 08:00 | XRR_ITS ---
PROCEDURE INFORMATION: Exam: XR Chest Exam date and time: 03/30/2022 8:12 AM Age: 82 years old Clinical indication: Dyspnea; Additional info: Heart failure TECHNIQUE: Imaging protocol: Radiologic exam of the chest. Views: 1 view. COM[place]ISON: [place] [id number] 03/29/2022 8:37 PM FINDINGS: Tubes, catheters and devices: Cardiac rhythm maintenance device is in place. Lungs: Patchy bibasilar airspace opacities. Pleural spaces: Small bilateral pleural effusions. No pneumothorax. Heart/Mediastinum: Cardiomegaly. Bones/joints: Unremarkable. XR/XR chest 1V portable [id number] IMPRESSION: Small bilateral pleural effusions with patchy bibasilar airspace opacities, which may reflect atelectasis or pneumonia.
[2022-03-30 08:07] LABS: Lactate Dehydrogenase 270 U/L (135-225)
--- NOTE | 2022-03-30 08:32 | P.PN_ITS ---
Subjective Subjective: Still remains confused and disoriented. The oxygenation seems to be improving. No chest pain or unusual shortness of breath. Has a low-grade fever. Hemoglobin dropped to 8.7 today. Telemetry shows atrial fibrillation with controlled ventricular response rate and demand V paced rhythm. Medications: Medication Review Details: Current Medications Acetaminophen (Acetaminophen 325 Mg Tablet) 650 mg PO Q6H PRN PRN Reason: Mild/Mod Pain Or Temp >/= 101 Albuterol/Ipratropium (Ipratropium-Albuterol 3 Ml Neb) 3 ml INHALATION Q4H PRN PRN Reason: SHORTNESS OF BREATH Aspirin (Aspirin 81 Mg Ec Tablet) 81 mg PO QAM [facility] Last Admin: 03/30/22 06:07 Dose: Not Given Atorvastatin Calcium (Atorvastatin 40 Mg Tablet) 40 mg PO BEDTIME NICOLE Carvedilol (Carvedilol 25 Mg Tablet) 25 mg PO BID NICOLE Clonidine HCl (Clonidine 0.3 Mg/24 Hr Patch) 1 patch TRANSDERMA Q7D [facility] Last Admin: 03/30/22 01:23 Dose: 1 patch Dextrose (Dextrose 50% Syringe 50 Ml) 25 ml IVP ONCE PRN; Protocol PRN Reason: hypoglycemia protocol Dextrose (Dextrose 50% Syringe 50 Ml) 50 ml IVP PRN PRN; Protocol PRN Reason: hypoglycemia protocol Furosemide (Furosemide 10 Mg/Ml Sdv 10ml) 60 mg IVP Q12H NICOLE Glucagon (Glucagon 1 Mg/Ml Inj 1 Ml) 1 mg IM ONCE PRN; Protocol PRN Reason: Adult Acute Hypoglycemia Prot. Heparin Sodium (Porcine) (Heparin 5,000 Unit/Ml Inj 1 Ml) 0 unit IV PRN PRN; Protocol PRN Reason: Heparin weight-base protocol Last Admin: 03/30/22 03:22 Dose: 1,600 unit Dextrose (D5w) 500 mls @ 100 mls/hr IV ONCE PRN; Protocol PRN Reason: Adult Acute Hypoglycemia Prot Ceftriaxone Sodium 1,000 mg/ (Sodium Chloride) 50 mls @ 100 mls/hr IV DAILY [facility]; Protocol Azithromycin 500 mg/ Sodium (Chloride) 250 mls @ 250 mls/hr IV Q24H NICOLE; Protocol Last Titration: 03/30/22 03:34 Dose: Infused Sodium Chloride (Sodium Chloride 0.9%) 1,000 mls @ 50 mls/hr IV .Q20H NICOLE Last Admin: 03/30/22 02:14 Dose: 50 mls/hr Heparin Sodium/Sodium Chloride (Heparin Drip) 25,000 unit in 500 mls @ 0 mls/hr IV .Q0M [facility]; Protocol Last Admin: 03/30/22 03:23 Dose: 14 unit/kg/hr, 21.59 mls/hr Insulin Human Lispro (Insulin Lispro 100 Unit/1 Ml) 0 unit SUBCUT WM&BEDTIME [facility]; Protocol Last Admin: 03/30/22 03:34 Dose: Not Given Pantoprazole Sodium (Pantoprazole Dr 40 Mg Tablet) 40 mg PO DAILY [facility] Sertraline HCl (Sertraline 50 Mg Tablet) 50 mg PO QAM NICOLE Last Admin: 03/30/22 06:07 Dose: Not Given Vitals/I&O/Wt Last Vital Signs Temp 98.6 F 03/30/22 04:00 Pulse 65 03/30/22 06:00 Resp 23 H 03/30/22 06:00 BP 119/55 03/30/22 06:00 Pulse Ox 97 03/30/22 05:00 O2 Del Method 03/30/22 00:17 O2 Flow Rate 2 03/30/22 00:17 03/29/22 03/30/22 03/30/22 22:59 06:59 14:59 Intake Total 50 / 50 250 / 300 Output Total 750 / 750 Balance 50 / 50 -500 / -450 Weight last 48 hrs Weight 170 lb Weight 173 lb Weight 170 lb Physical Exam Narrative: GENERAL: The patient is somewhat drowsy . confused/disoriented. He is hard of hearing. HEENT: Mild pallor, no icterus or lymphadenopathy. Oral cavity: There are no mucous membrane lesions. NECK: Trachea appears to be central. No masses noted. No JVD or thyromegaly appreciated. RESPIRATORY: Chest is symmetrical. No intercostals muscle retraction or any accessory muscle activation. There is no chest wall tenderness. Breath sounds are heard bilaterally. No rales or rhonchi heard. No evidence of any consolidation. BREASTS: Deferred. HEART: The first heart sound is variable second heart sound is normal no S3 or S4. No significant murmurs. No pericardial rub ABDOMEN: No vessel pulsations or distention. No tenderness. No organomegaly appreciated. Bowel sounds are normally heard. : Deferred. RECTAL: Deferred. LYMPHATIC: No lymphadenopathy noted in the neck. EXTREMITIES: 1+ edema with no cyanosis. Peripheral pulses are weak bilaterally. MUSCULOSKELETAL: No acute joint deformities or swelling SKIN: There are no significant rashes or ecchymosis NEUROPSYCHIATRIC: Patient is drowsy . Altered mental status as mentioned before Urinary Catheter Management: Mojica: Cath Placed During This Visit: yes Reason for Continuing Indwelling Catheter: Accurate Measurement of Urinary Out put in Critically Ill Patients Urinary Catheter Date of Insertion: 03/29/22 Urinary Catheter Time of Insertion: 20:10 Data : 03/30/22 05:30 03/30/22 05:30 Other Labs: Laboratory Last Values WBC 20.4 10^3/uL (4.0-10.0) H 03/30/22 05:30 RBC 3.01 10^6/uL (4.1-5.3) L 03/30/22 05:30 Hgb 8.7 g/dL (11.7-16.6) L 03/30/22 05:30 Hct 26.0 % (42.0-52.0) L 03/30/22 05:30 MCV 86.4 fl (80-94) D 03/30/22 05:30 MCH 28.9 pg (28.0-34.0) 03/30/22 05:30 MCHC 33.5 g/dL (30.0-36.0) D 03/30/22 05:30 RDW 15.4 % (12.1-15.1) H 03/30/22 05:30 Plt Count 220 10^3/cmm (130-400) 03/30/22 05:30 MPV 11.4 fL (7.4-10.4) H 03/30/22 05:30 Neut % (Auto) 83.8 % 03/30/22 05:30 Lymph % (Auto) 7.9 % 03/30/22 05:30 [place] % (Auto) 7.5 % 03/30/22 05:30 Eos % (Auto) 0.0 % 03/30/22 05:30 Baso % (Auto) 0.1 % 03/30/22 05:30 Neut # (Auto) 17.11 10^3/uL (1.8-7.7) H 03/30/22 05:30 Lymph # (Auto) 1.6 10^3/uL (0.8-4.8) 03/30/22 05:30 [place] # (Auto) 1.5 10^3/uL (0.2-0.9) H 03/30/22 05:30 Eos # (Auto) 0.0 10^3/uL (0.0-0.8) 03/30/22 05:30 Baso # (Auto) 0.0 10^3/uL (0.0-0.1) 03/30/22 05:30 Nucleated RBC % (auto) 0.1 % 03/30/22 05:30 Nucleated RBCs # 0.0 /100WBC 03/30/22 05:30 PT 20.10 SECONDS (12.1-14.9) H 03/30/22 01:00 INR 1.68 (0.8-1.2) H 03/30/22 01:00 Specimen Type Arterial 03/29/22 11:59 Sample Site Brachial, left 03/29/22 11:59 ABG pH 7.53 (7.35-7.45) H 03/29/22 11:59 ABG pCO2 19.4 mmHg (35-45) L* 03/29/22 11:59 ABG pO2 59.8 mmHg (80.0-100.0) L 03/29/22 11:59 ABG HCO3 16.1 mmol/L (22-26) L 03/29/22 11:59 ABG O2 Saturation 93.5 03/29/22 11:59 ABG Base Excess -5.4 mmol/L (-2.0-2.0) L 03/29/22 11:59 [place]airo Test N/a 03/29/22 11:59 A-a O2 Gradient 14.8 mmHg (5-10) H 03/29/22 11:59 Hematocrit 27.0 % (42-52) L 03/29/22 11:59 Hgb O2 Saturation 91.5 % (95-100) L 03/29/22 11:59 Carboxyhemoglobin 2.1 %THgb (0.4-20.1) 03/29/22 11:59 Methemoglobin 0.1 % (0.4-1.5) L 03/29/22 11:59 Total Hemoglobin 8.8 g/dL (14-18) L 03/29/22 11:59 Sodium 129.0 mmol/L (131-143) L 03/29/22 11:59 Potassium 3.4 mmol/L (3.5-5.0) L 03/29/22 11:59 Glucose 158.0 mg/dL (70-115) H 03/29/22 11:59 Ionized Calcium 1.1 mmol/L (1.1-1.4) 03/29/22 11:59 O2 Delivery Device Nc 03/29/22 11:59 O2 Liters/Min 2.0 % 03/29/22 11:59 FiO2 28.0 % 03/29/22 11:59 Pricing Actuary ID Ed 03/29/22 11:59 Sodium 132 mmol/L (136-145) L 03/30/22 05:30 Potassium 3.5 mmol/L (3.5-5.1) 03/30/22 05:30 Chloride 96 mmol/L (98-107) L 03/30/22 05:30 Carbon Dioxide 16 mmol/L (22-29) L 03/30/22 05:30 Anion Gap 23.5 (5-19) H 03/30/22 05:30 BUN 54 mg/dL (8-23) H 03/30/22 05:30 Creatinine 1.3 mg/dL (0.7-1.2) H 03/30/22 05:30 GFR Calculation Not Reportable 03/30/22 05:30 Glucose 155 mg/dL (65-115) H 03/30/22 05:30 POC Glucose 163 mg/dL (70-110) H 03/30/22 07:16 Estimat Average Glucose 117 03/29/22 19:50 Hemoglobin A1c 5.7 % (4.0-6.0) 03/29/22 19:50 Calculated Osmolality 292 mOsm/kg (285-295) 03/30/22 05:30 Lactic Acid 3.4 mmol/L (0.5-2.2) H 03/29/22 19:50 Lactic Acid (Sepsis) 2.6 mmol/L (0.5-2.2) H 03/30/22 01:00 Calcium 8.4 mg/dL (8.5-10.5) L 03/30/22 05:30 Phosphorus 3.7 mg/dL (2.5-4.5) 03/30/22 05:30 Magnesium 1.9 mg/dL (1.7-2.3) 03/30/22 05:30 Iron 17 ug/dL (59-158) L 03/29/22 17:34 Iron 18 ug/dL (59-158) L 03/29/22 17:34 TIBC 233 mcg/dl 03/29/22 17:34 % Saturation 7.7 % (20-50) L 03/29/22 17:34 Unsat Iron Binding 215 ug/dL (112-347) 03/29/22 17:34 Ferritin 141 ng/mL (30-400) 03/29/22 17:34 Total Bilirubin 0.7 mg/dL (0.15-1.2) 03/30/22 05:30 AST 43 U/L (0-40) H 03/30/22 05:30 ALT 43 U/L (0-41) H 03/30/22 05:30 Alkaline Phosphatase 54 IU/L (40-130) 03/30/22 05:30 Lactate Dehydrogenase 270 U/L (135-225) H 03/30/22 05:30 Lactate Dehydrogenase Cancelled 03/30/22 05:30 Creatine Kinase 65 U/L (39-308) 03/30/22 01:00 Troponin T Baseline 43 ng/L (0-15) H 03/29/22 15:36 Troponin T 120 Minute 37.70 ng/L (0-15) H 03/29/22 17:34 Delta Troponin T -5.30 ABS# (0-10) L 03/29/22 17:34 Troponin T Hi Sens 6Hr 33.16 ng/L (0-15) H 03/29/22 21:25 Troponin T Hi Sens 6Hr Delta -9.84 ng/L (0-12) L 03/29/22 21:25 NT-Pro-B Natriuret Pep > 99971 pg/mL (0-450) H 03/29/22 15:36 Total Protein 5.6 g/dL (6.6-8.7) L 03/30/22 05:30 Albumin 3.4 g/dL (3.5-5.2) L 03/30/22 05:30 Globulin 2.2 g/dL (1.3-4.6) 03/30/22 05:30 Triglycerides 83 mg/dL (0-150) 03/29/22 17:34 Cholesterol 125 mg/dL (0-200) 03/29/22 17:34 LDL Cholesterol, Calc 87 mg/dL (50-129) 03/29/22 17:34 HDL Cholesterol 21 mg/dL (60-100) L 03/29/22 17:34 LDL/HDL Ratio 4.14 RATIO (0.00-3.22) H 03/29/22 17:34 Cholesterol/HDL Ratio 5.95 mg/dL (1.0-5.00) H 03/29/22 17:34 Procalcitonin 0.20 ng/mL (0-0.5) 03/29/22 17:34 TSH 1.92 uIU/mL (0.27-4.20) 03/29/22 17:34 Urine Color Yellow (Yellow) 03/29/22 17:35 Urine Appearance Clear (CLEAR) 03/29/22 17:35 Urine pH 5 (5-7) 03/29/22 17:35 Ur Specific [place] 1.020 (1.005-1.030) 03/29/22 17:35 Urine Protein 1+ (Negative) H 03/29/22 17:35 Urine Glucose (UA) Norm (Normal) 03/29/22 17:35 Urine Ketones Negative (Negative) 03/29/22 17:35 Urine Blood 2+ (Negative) H 03/29/22 17:35 Urine Nitrate Negative (Negative) 03/29/22 17:35 Urine Bilirubin Neg (Negative) 03/29/22 17:35 Urine Urobilinogen Norm mg/dL (Negative) 03/29/22 17:35 Ur Leukocyte Esterase 1+ (Negative) H 03/29/22 17:35 Urine RBC 0-4 /hpf (0-2) H 03/29/22 17:35 Urine WBC 55-80 /hpf (0-5) H 03/29/22 17:35 Ur Squamous Epith Cells 0-4 /hpf (0-5) H 03/29/22 17:35 Amorphous Sediment Not Reportable 03/29/22 17:35 Urine Bacteria None /hpf (NONE) 03/29/22 17:35 Nasal Influ A H1 2008 PCR Not detected (NOT DETECT) 03/30/22 01:15 Adenovirus (PCR) Not detected (NOT DETECT) 03/30/22 01:15 C. pneumoniae DNA (PCR) Not detected (NOT DETECT) 03/30/22 01:15 Coronavirus 229E (PCR) Not detected (NOT DETECT) 03/30/22 01:15 Human Metapneumovir PCR Not detected (NOT DETECT) 03/30/22 01:15 Influenza A (H1) PCR Not detected (NOT DETECT) 03/30/22 01:15 Influenza A (H3) PCR Not detected (NOT DETECT) 03/30/22 01:15 Influenza Type A (PCR) Not detected (NOT DETECT) 03/30/22 01:15 Influenza Type B (PCR) Not detected (NOT DETECT) 03/30/22 01:15 M. pneumoniae (PCR) Not detected (NOT DETECT) 03/30/22 01:15 Parainfluenza 1 (PCR) Not detected (NOT DETECT) 03/30/22 01:15 Parainfluenza 2 (PCR) Not detected (NOT DETECT) 03/30/22 01:15 Parainfluenza 3 (PCR) Not detected (NOT DETECT) 03/30/22 01:15 Parainfluenza 4 (PCR) Not detected (NOT DETECT) 03/30/22 01:15 RSV Type A (PCR) Not detected (NOT DETECT) 03/30/22 01:15 RSV Type B (PCR) Not detected (NOT DETECT) 03/30/22 01:15 Entero/Rhino (PCR) Not detected (NOT DETECT) 03/30/22 01:15 SARS-CoV-2 (PCR) Not detected (NOT DETECT) 03/30/22 01:15 SARS-CoV-2 Ag (Rapid) Negative (Negative) 03/29/22 21:31 Micro: Microbiology 03/29/22 21:25 Blood Culture - Preliminary Blood SPECIMEN COLLECTED 03/29/22 19:50 Blood Culture - Preliminary Blood SPECIMEN COLLECTED A&P Assessment and plan (1) Congestive heart failure: The heart failure seems to be getting compensated. The LV ejection fraction by echocardiogram was around 30%. Hemodynamically seems to be stable. Status: Acute (2) Cardiomyopathy: Most likely the patient may have underlying coronary artery disease. This needs to be further evaluated. Status: Acute (3) Atrial fibrillation: Patient appears to be in chronic atrial fibrillation with a controlled ventricular rate. He does not appear to be on any oral anticoagulant at this time. The medical records from [place] is reviewed. Patient was in atrial fibrillation in the past. Exact reasons for not being on the oral anticoagulant is not known. Status: Acute (4) Pacemaker: The pacemaker function appears to be appropriate. Apparently had a single- chamber [employer] pacemaker implanted in November of this year at the [facility] in [place]. The pacemaker function appears to be appropriate. Status: Acute (5) Abnormal EKG: The EKG changes may suggest inferior and anterolateral wall ischemia. Patient requires a cardiac colorization, to further evaluate his coronary status. However in view of his multiple comorbidities, we will try to optimize his medical treatment prior to proceeding with an invasive strategy. Status: Acute (6) Acute kidney injury: Patient is a kidney function was in the normal range prior to this. Most likely the heart failure/sepsis might be contributing to this. The BUN/creatinine seems to be going up. Status: Acute (7) Sepsis: UTI/possible pneumonia I will be causing this. Patient is on IV antibiotics. Status: Acute (8) Lactic acidosis: This could be multifactorial. I may hold off on the metformin at this point. The kidney function will be closely monitored. The repeat lactic acid level seems to be coming down. Status: Acute Plan Other problems are Aortic valve stenosis Anemia Electrolyte abnormalities Type 2 diabetes UTI/sepsis Dementia Discussed in detail with the patient's family(2 daughters and his sister) about his condition and further management options. Treating the infection and the heart failure is the first priority. Also need to look into any source of bleeding because of the drop in the hemoglobin level. We need to see the kidney function getting stabilized before proceeding with the angiogram Patient's overall prognosis is poor. Result discussed with the family in detail which is understood well. Based on the clinical progress, further recommendations will be made. Attestations Medical Necessity Statement*: Patient requires continued hospital stay for close monitoring and further management Coding Level of Care Code Acute Extract Puller for Chg Fwd History Expanded Problem Focused Exam Detailed Medical Decision Making Moderate Complexity Diagnoses Congestive heart failure I50.9 Cardiomyopathy I42.9 Atrial fibrillation I48.91 Pacemaker Z95.0 Abnormal EKG R94.31 Acute kidney injury N17.9 Sepsis A41.9 Lactic acidosis E87.2
[2022-03-30] MEDS: cefTRIAXone 1,000 MG in sodium chloride 0.9% (plus) 50 ML 100 MG IV (08:41)
--- NOTE | 2022-03-30 09:41 | PC.NURSE ---
Pt unable to follow commands to drink water so AM PO medications not administered.
--- NOTE | 2022-03-30 10:14 | PC.SLP ---
Pt unable to be assessed at this time due to decreased alertness. VOCATIONAL REHAB CONSULTANT will check back with the pt later this afternoon and assess, if the pt is able.
[2022-03-30 10:20] LABS: Partial Thromboplastin Time 183.8 SECONDS (23.9-36.7)
--- NOTE | 2022-03-30 10:36 | PC.NURSE ---
Critical PTT reported to this nurse. Dr. Garcia gave verbal order to stop heparin gtt for two hours and restart it at 16mL an hour.
[2022-03-30 11:22] LABS: Glucose Point of Care 160 mg/dL (70-110)
[2022-03-30] MEDS: insulin lispro 100 unit/1 mL SUBCUT ×2 (12:20→20:46)
--- NOTE | 2022-03-30 12:46 | PM.PN ---
Subjective Subjective: Patient was seen at the bedside He is pleasantly confused Sister is at the bedside Patient is AND I asked sister to discuss among family members whether they would opt for an angiogram, he has new reduction in his EF which would explain CHF Dr. Garcia is consulted There is drop in hemoglobin, I will repeat H&H Patient has been started on ACS protocol Vitals/I&O/Wt Last Vital Signs Temp 100.0 F H 03/30/22 07:30 Pulse 70 03/30/22 12:00 Resp 27 H 03/30/22 12:00 BP 147/71 03/30/22 12:00 Pulse Ox 92 03/30/22 11:30 O2 Del Method 03/30/22 08:00 O2 Flow Rate 2 03/30/22 00:17 03/29/22 03/30/22 03/30/22 22:59 06:59 14:59 Intake Total 50 / 50 250 / 300 150.051 / 150.051 Output Total 750 / 750 Balance 50 / 50 -500 / -450 150.051 / 150.051 Weight last 48 hrs Weight 77.111 kg Weight 78.471 kg Weight 77.111 kg Physical Exam Narrative: Patient is pleasantly confused Verbally redirectable Febrile Blood pressure stable Currently on room air Lethargic and fatigued No signs of stroke No active chest pain Currently on room air Mild rhonchi otherwise no active wheezing or crackles Abdomen soft Urinary Catheter Management: Mojica: Cath Placed During This Visit: yes Reason for Continuing Indwelling Catheter: Accurate Measurement of Urinary Output in Critically Ill Patients Urinary Catheter Date of Insertion: 03/29/22 Urinary Catheter Time of Insertion: 20:10 Data : 03/30/22 05:30 03/30/22 05:30 Micro: Microbiology 03/29/22 21:25 Blood Culture - Preliminary Blood SPECIMEN COLLECTED 03/29/22 19:50 Blood Culture - Preliminary Blood SPECIMEN COLLECTED A&P Assessment and plan (1) Lactic acidosis: Status: Acute (2) Atrial fibrillation: Status: Acute (3) Abnormal EKG: Status: Acute (4) Cardiomyopathy: Status: Acute (5) Congestive heart failure: Status: Acute (6) Anemia: Status: Acute (7) Sepsis: Status: Acute (8) Pacemaker: Status: Acute (9) Acute kidney injury: Status: Acute (10) Type 2 diabetes mellitus with hyperglycemia: Status: Chronic Qualifiers: Diabetes mellitus termite helper insulin use: without [place] use Qualified Code(s): E11.65 - Type 2 diabetes mellitus with hyperglycemia (11) Dementia: Status: Chronic Plan Sepsis related to UTI Continue antibiotics hemodynamically stable I do agree with judicious use of IV fluids in setting of CHF Lactic acidosis improved Lactic acidemia secondary to sepsis Acute delirium with underlying dementia related to UTI Continue antibiotics New onset CHF Chronic A. fib with controlled heart rate Related to ACS Currently on ACS protocol Sepsis cardiomyopathy? Acute normocytic anemia Check H&H No active GI bleed Check FOBT Continue heparin drip platelet counts are normal, ROMANA related to UTI Anticipating improvement with diuresis, antibiotics, adequate urine output Pacemaker interrogation DNR/DNI Cardiac diet Currently on heparin drip Dementia: Appreciate cardiology recommendations Guarded prognosis Attestations Medical Necessity Statement*: Continue ICU management Time Spent in Patient Care: 40 Coding Level of Care Code Acute Beverage Specialist for g Fwd Diagnoses Lactic acidosis E87.2 Atrial fibrillation I48.91 Abnormal EKG R94.31 Cardiomyopathy I42.9 Congestive heart failure I50.9 Anemia D64.9 Sepsis A41.9 Pacemaker Z95.0 Acute kidney injury N17.9 Type 2 diabetes mellitus with hyperglycemia E11.65 Diabetes mellitus [facility] insulin use: without termite helper use Dementia F03.90
[2022-03-30 13:19] LABS: Hematocrit 25.8 % (42.0-52.0); Hemoglobin 8.9 g/dL (11.7-16.6)
[2022-03-30] MEDS: FUROsemide 10 mg/mL SDV 2mL 20 MG IVP (14:38)
[2022-03-30 16:23] LABS: Glucose Point of Care 123 mg/dL (70-110)
[2022-03-30] MEDS: carvedilol 25 mg Tablet PO (18:17)
[2022-03-30 19:59] LABS: Partial Thromboplastin Time 101.7 SECONDS (23.9-36.7)
[2022-03-30 20:19] LABS: Glucose Point of Care 227 mg/dL (70-110)
[2022-03-30] MEDS: atorvastatin 40 mg Tablet PO (20:46)
[2022-03-30] MEDS: acetaminophen 325 mg Tablet 650 MG PO (23:52)
[2022-03-31] VITALS (87 sets, daily range): BP systolic 91–156; BP diastolic 55–108; PULSE 65–86; RESP 14–38; TEMP 37.5–38.6; O2SAT 77–99
[2022-03-31] LABS: Glucose Point of Care 134 mg/dL (70-110)
[2022-03-31 01:48] LABS: Basophils % 0.1 %; Hematocrit 28.5 % (42.0-52.0); Hemoglobin 8.9 g/dL (11.7-16.6); Lymphocytes # 1.3 10^3/uL (0.8-4.8); Lymphocytes % 10.3 %; Mean Corpuscular HGB Conc 31.2 g/dL (30.0-36.0); Mean Corpuscular Volume 92.8 fl (80-94); Monocytes # 1.1 10^3/uL (0.2-0.9); Monocytes % 8.8 %; Neutrophils # 10.31 10^3/uL (1.8-7.7); Nucleated Red Blood Cells # 0.1 /100WBC; Nucleated Red Blood Cells % 0.6 %; Platelet Count 199 10^3/cmm (130-400); Red Blood Count 3.07 10^6/uL (4.1-5.3); Red Cell Distribution Width 15.9 % (12.1-15.1); White Blood Count 12.9 10^3/uL (4.0-10.0)
[2022-03-31 02:11] LABS: Anion Gap 15.8 (5-19); Blood Urea Nitrogen 51 mg/dL (8-23); Calcium 7.9 mg/dL (8.5-10.5); Carbon Dioxide 20 mmol/L (22-29); Chloride 100 mmol/L (98-107); Glucose 99 mg/dL (65-115); Osmolality Calculated 290 mOsm/kg (285-295); Sodium 133 mmol/L (136-145)
[2022-03-31 02:16] LABS: Partial Thromboplastin Time 60.9 SECONDS (23.9-36.7)
[2022-03-31 02:34] LABS: Potassium 2.8 mmol/L (3.5-5.1)
[2022-03-31] MEDS: potassium chloride premix 100 ML 25 MEQ IV (02:53)
[2022-03-31] MEDS: aspirin 81 mg EC Tablet PO (06:30)
[2022-03-31] MEDS: sertraline 50 mg Tablet PO (06:30)
[2022-03-31 07:28] LABS: Glucose Point of Care 108 mg/dL (70-110)
[2022-03-31 08:31] LABS: Partial Thromboplastin Time 64.3 SECONDS (23.9-36.7)
--- NOTE | 2022-03-31 08:35 | P.PN_ITS ---
Subjective Subjective: The patient continues to remain confused and disoriented. No chest pain or shortness of breath. Was found to be hypokalemic with a potassium of 2.8. No fever or chills. No cough. No other specific complaints. Medications: Medication Review Details: Current Medications Acetaminophen (Acetaminophen 325 Mg Tablet) 650 mg PO Q6H PRN PRN Reason: Mild/Mod Pain Or Temp >/= 101 Last Admin: 03/30/22 23:52 Dose: 650 mg Albuterol/Ipratropium (Ipratropium-Albuterol 3 Ml Neb) 3 ml INHALATION Q4H PRN PRN Reason: SHORTNESS OF BREATH Aspirin (Aspirin 81 Mg Ec Tablet) 81 mg PO QAM [facility] Last Admin: 03/31/22 06:30 Dose: 81 mg Atorvastatin Calcium (Atorvastatin 40 Mg Tablet) 40 mg PO BEDTIME [facility] Last Admin: 03/30/22 20:46 Dose: 40 mg Carvedilol (Carvedilol 25 Mg Tablet) 25 mg PO BID [facility] Last Admin: 03/30/22 18:17 Dose: 25 mg Clonidine HCl (Clonidine 0.3 Mg/24 Hr Patch) 1 patch TRANSDERMA Q7D [facility] Last Admin: 03/30/22 01:23 Dose: 1 patch Dextrose (Dextrose 50% Syringe 50 Ml) 25 ml IVP ONCE PRN; Protocol PRN Reason: hypoglycemia protocol Dextrose (Dextrose 50% Syringe 50 Ml) 50 ml IVP PRN PRN; Protocol PRN Reason: hypoglycemia protocol Furosemide (Furosemide 10 Mg/Ml Sdv 2ml) 20 mg IVP Q24H [facility] Last Admin: 03/30/22 14:38 Dose: 20 mg Glucagon (Glucagon 1 Mg/Ml Inj 1 Ml) 1 mg IM ONCE PRN; Protocol PRN Reason: Adult Acute Hypoglycemia Prot. Heparin Sodium (Porcine) (Heparin 5,000 Unit/Ml Inj 1 Ml) 0 unit IV PRN PRN; Protocol PRN Reason: Heparin weight-base protocol Last Admin: 03/30/22 03:22 Dose: 1,600 unit Dextrose (D5w) 500 mls @ 100 mls/hr IV ONCE PRN; Protocol PRN Reason: Adult Acute Hypoglycemia Prot Ceftriaxone Sodium 1,000 mg/ (Sodium Chloride) 50 mls @ 100 mls/hr IV DAILY [facility]; Protocol Last Admin: 03/30/22 08:41 Dose: 100 mls/hr Heparin Sodium/Sodium Chloride (Heparin Drip) 25,000 unit in 500 mls @ 0 mls/hr IV .Q0M [facility]; Protocol Last Titration: 03/31/22 02:18 Dose: 7.13 unit/kg/hr, 11 mls/hr Insulin Human Lispro (Insulin Lispro 100 Unit/1 Ml) 0 unit SUBCUT WM&BEDTIME [facility]; Protocol Last Admin: 03/31/22 07:27 Dose: Not Given Lidocaine HCl (Lidocaine 2% Jelly 5 Ml) 1 applic TOPICAL PRN PRN PRN Reason: PAIN Pantoprazole Sodium (Pantoprazole Dr 40 Mg Tablet) 40 mg PO DAILY [facility] Last Admin: 03/30/22 09:05 Dose: Not Given Sertraline HCl (Sertraline 50 Mg Tablet) 50 mg PO QAM [facility] Last Admin: 03/31/22 06:30 Dose: 50 mg Vitals/I&O/Wt Last Vital Signs Temp 99.7 F H 03/31/22 04:00 Pulse 75 03/31/22 06:45 Resp 24 H 03/31/22 06:45 BP 156/108 03/31/22 06:45 Pulse Ox 93 03/31/22 06:30 O2 Del Method 03/31/22 00:00 O2 Flow Rate 2 03/31/22 00:00 03/30/22 03/31/22 03/31/22 22:59 06:59 14:59 Intake Total 553.066 / 703.117 190.683 / 893.800 Output Total 1000 / 1000 Balance -446.934 / -296.883 190.683 / -106.200 Weight last 48 hrs Weight 170 lb Weight 173 lb Weight 170 lb Physical Exam Narrative: GENERAL: The patient is alert confused and disoriented. Not in any acute distress. HEENT: Moderate pallor, icterus or lymphadenopathy.Oral cavity: There are no mucous membrane lesions. NECK: Trachea appears to be central. No masses noted. No JVD or thyromegaly appreciated. RESPIRATORY: Chest is symmetrical. No intercostals muscle retraction or any accessory muscle activation. There is no chest wall tenderness. Breath sounds are heard bilaterally. No rales or rhonchi heard. No evidence of any consolidation. BREASTS: Deferred. HEART: The heart sounds are normal. No S3 or S4. Ejection systolic murmur grade 3/6 in the aortic area. Short systolic murmur the left sternal border. No diastolic murmurs. No pericardial rub ABDOMEN: No vessel pulsations or distention. No tenderness. No organomegaly appreciated. Bowel sounds are normally heard. : Deferred. RECTAL: Deferred. LYMPHATIC: No lymphadenopathy noted in the neck. EXTREMITIES: 1+ edema with no cyanosis. MUSCULOSKELETAL: No acute joint deformities or swelling SKIN: There are no significant rashes or ecchymosis NEUROPSYCHIATRIC: Alert but confused and disoriented. No focal motor deficits. Urinary Catheter Management: Mojica: Cath Placed During This Visit: yes Reason for Continuing Indwelling Catheter: Accurate Measurement of Urinary Output in Critically Ill Patients Urinary Catheter Date of Insertion: 03/29/22 Urinary Catheter Time of Insertion: 20:10 Data : 03/31/22 01:35 03/31/22 08:05 Other Labs: Laboratory Last Values WBC 12.9 10^3/uL (4.0-10.0) H 03/31/22 01:35 RBC 3.07 10^6/uL (4.1-5.3) L 03/31/22 01:35 Hgb 8.9 g/dL (11.7-16.6) L 03/31/22 01:35 Hct 28.5 % (42.0-52.0) L 03/31/22 01:35 MCV 92.8 fl (80-94) D 03/31/22 01:35 MCH 29.0 pg (28.0-34.0) 03/31/22 01:35 MCHC 31.2 g/dL (30.0-36.0) D 03/31/22 01:35 RDW 15.9 % (12.1-15.1) H 03/31/22 01:35 Plt Count 199 10^3/cmm (130-400) 03/31/22 01:35 MPV 11.0 fL (7.4-10.4) H 03/31/22 01:35 Neut % (Auto) 80.0 % 03/31/22 01:35 Lymph % (Auto) 10.3 % 03/31/22 01:35 [place] % (Auto) 8.8 % 03/31/22 01:35 Eos % (Auto) 0.0 % 03/31/22 01:35 Baso % (Auto) 0.1 % 03/31/22 01:35 Neut # (Auto) 10.31 10^3/uL (1.8-7.7) H 03/31/22 01:35 Lymph # (Auto) 1.3 10^3/uL (0.8-4.8) 03/31/22 01:35 [place] # (Auto) 1.1 10^3/uL (0.2-0.9) H 03/31/22 01:35 Eos # (Auto) 0.0 10^3/uL (0.0-0.8) 03/31/22 01:35 Baso # (Auto) 0.0 10^3/uL (0.0-0.1) 03/31/22 01:35 Nucleated RBC % (auto) 0.6 % 03/31/22 01:35 Nucleated RBCs # 0.1 /100WBC 03/31/22 01:35 PT 20.10 SECONDS (12.1-14.9) H 03/30/22 01:00 INR 1.68 (0.8-1.2) H 03/30/22 01:00 APTT 64.3 SECONDS (23.9-36.7) H 03/31/22 08:05 Specimen Type Arterial 03/29/22 11:59 Sample Site Brachial, left 03/29/22 11:59 ABG pH 7.53 (7.35-7.45) H 03/29/22 11:59 ABG pCO2 19.4 mmHg (35-45) L* 03/29/22 11:59 ABG pO2 59.8 mmHg (80.0-100.0) L 03/29/22 11:59 ABG HCO3 16.1 mmol/L (22-26) L 03/29/22 11:59 ABG O2 Saturation 93.5 03/29/22 11:59 ABG Base Excess -5.4 mmol/L (-2.0-2.0) L 03/29/22 11:59 Jairo Test N/a 03/29/22 11:59 A-a O2 Gradient 14.8 mmHg (5-10) H 03/29/22 11:59 Hematocrit 27.0 % (42-52) L 03/29/22 11:59 Hgb O2 Saturation 91.5 % (95-100) L 03/29/22 11:59 Carboxyhemoglobin 2.1 %THgb (0.4-20.1) 03/29/22 11:59 Methemoglobin 0.1 % (0.4-1.5) L 03/29/22 11:59 Total Hemoglobin 8.8 g/dL (14-18) L 03/29/22 11:59 Sodium 129.0 mmol/L (131-143) L 03/29/22 11:59 Potassium 3.4 mmol/L (3.5-5.0) L 03/29/22 11:59 Glucose 158.0 mg/dL (70-115) H 03/29/22 11:59 Ionized Calcium 1.1 mmol/L (1.1-1.4) 03/29/22 11:59 O2 Delivery Device Nc 03/29/22 11:59 O2 Liters/Min 2.0 % 03/29/22 11:59 FiO2 28.0 % 03/29/22 11:59 Application Developer ID Ed 03/29/22 11:59 Sodium 133 mmol/L (136-145) L 03/31/22 01:35 Potassium 2.8 mmol/L (3.5-5.1) L* 03/31/22 01:35 Chloride 100 mmol/L (98-107) 03/31/22 01:35 Carbon Dioxide 20 mmol/L (22-29) L 03/31/22 01:35 Anion Gap 15.8 (5-19) 03/31/22 01:35 BUN 51 mg/dL (8-23) H 03/31/22 01:35 Creatinine 1.5 mg/dL (0.7-1.2) H 03/31/22 01:35 GFR Calculation Not Reportable 03/31/22 01:35 Glucose 99 mg/dL (65-115) 03/31/22 01:35 POC Glucose 108 mg/dL (70-110) 03/31/22 07:24 Estimat Average Glucose 117 03/29/22 19:50 Hemoglobin A1c 5.7 % (4.0-6.0) 03/29/22 19:50 Calculated Osmolality 290 mOsm/kg (285-295) 03/31/22 01:35 Lactic Acid 2.0 mmol/L (0.5-2.2) 03/31/22 01:35 Lactic Acid (Sepsis) 2.6 mmol/L (0.5-2.2) H 03/30/22 01:00 Calcium 7.9 mg/dL (8.5-10.5) L 03/31/22 01:35 Phosphorus 3.7 mg/dL (2.5-4.5) 03/30/22 05:30 Magnesium 1.9 mg/dL (1.7-2.3) 03/30/22 05:30 Iron 17 ug/dL (59-158) L 03/29/22 17:34 Iron 18 ug/dL (59-158) L 03/29/22 17:34 TIBC 233 mcg/dl 03/29/22 17:34 % Saturation 7.7 % (20-50) L 03/29/22 17:34 Unsat Iron Binding 215 ug/dL (112-347) 03/29/22 17:34 Ferritin 141 ng/mL (30-400) 03/29/22 17:34 Total Bilirubin 0.7 mg/dL (0.15-1.2) 03/30/22 05:30 AST 43 U/L (0-40) H 03/30/22 05:30 ALT 43 U/L (0-41) H 03/30/22 05:30 Alkaline Phosphatase 54 IU/L (40-130) 03/30/22 05:30 Lactate Dehydrogenase 270 U/L (135-225) H 03/30/22 05:30 Lactate Dehydrogenase Cancelled 03/30/22 05:30 Creatine Kinase 65 U/L (39-308) 03/30/22 01:00 Troponin T Baseline 43 ng/L (0-15) H 03/29/22 15:36 Troponin T 120 Minute 37.70 ng/L (0-15) H 03/29/22 17:34 Delta Troponin T -5.30 ABS# (0-10) L 03/29/22 17:34 Troponin T Hi Sens 6Hr 33.16 ng/L (0-15) H 03/29/22 21:25 Troponin T Hi Sens 6Hr Delta -9.84 ng/L (0-12) L 03/29/22 21:25 NT-Pro-B Natriuret Pep > 97071 pg/mL (0-450) H 03/29/22 15:36 Total Protein 5.6 g/dL (6.6-8.7) L 03/30/22 05:30 Albumin 3.4 g/dL (3.5-5.2) L 03/30/22 05:30 Globulin 2.2 g/dL (1.3-4.6) 03/30/22 05:30 Triglycerides 83 mg/dL (0-150) 03/29/22 17:34 Cholesterol 125 mg/dL (0-200) 03/29/22 17:34 LDL Cholesterol, Calc 87 mg/dL (50-129) 03/29/22 17:34 HDL Cholesterol 21 mg/dL (60-100) L 03/29/22 17:34 LDL/HDL Ratio 4.14 RATIO (0.00-3.22) H 03/29/22 17:34 Cholesterol/HDL Ratio 5.95 mg/dL (1.0-5.00) H 03/29/22 17:34 Procalcitonin 0.20 ng/mL (0-0.5) 03/29/22 17:34 TSH 1.92 uIU/mL (0.27-4.20) 03/29/22 17:34 Urine Color Yellow (Yellow) 03/29/22 17:35 Urine Appearance Clear (CLEAR) 03/29/22 17:35 Urine pH 5 (5-7) 03/29/22 17:35 Ur Specific [place] 1.020 (1.005-1.030) 03/29/22 17:35 Urine Protein 1+ (Negative) H 03/29/22 17:35 Urine Glucose (UA) Norm (Normal) 03/29/22 17:35 Urine Ketones Negative (Negative) 03/29/22 17:35 Urine Blood 2+ (Negative) H 03/29/22 17:35 Urine Nitrate Negative (Negative) 03/29/22 17:35 Urine Bilirubin Neg (Negative) 03/29/22 17:35 Urine Urobilinogen Norm mg/dL (Negative) 03/29/22 17:35 Ur Leukocyte Esterase 1+ (Negative) H 03/29/22 17:35 Urine RBC 0-4 /hpf (0-2) H 03/29/22 17:35 Urine WBC 55-80 /hpf (0-5) H 03/29/22 17:35 Ur Squamous Epith Cells 0-4 /hpf (0-5) H 03/29/22 17:35 Amorphous Sediment Not Reportable 03/29/22 17:35 Urine Bacteria None /hpf (NONE) 03/29/22 17:35 Nasal Influ A H1 2009 PCR Not detected (NOT DETECT) 03/30/22 01:15 Adenovirus (PCR) Not detected (NOT DETECT) 03/30/22 01:15 C. pneumoniae DNA (PCR) Not detected (NOT DETECT) 03/30/22 01:15 Coronavirus 229E (PCR) Not detected (NOT DETECT) 03/30/22 01:15 Human Metapneumovir PCR Not detected (NOT DETECT) 03/30/22 01:15 Influenza A (H1) PCR Not detected (NOT DETECT) 03/30/22 01:15 Influenza A (H3) PCR Not detected (NOT DETECT) 03/30/22 01:15 Influenza Type A (PCR) Not detected (NOT DETECT) 03/30/22 01:15 Influenza Type B (PCR) Not detected (NOT DETECT) 03/30/22 01:15 M. pneumoniae (PCR) Not detected (NOT DETECT) 03/30/22 01:15 Parainfluenza 1 (PCR) Not detected (NOT DETECT) 03/30/22 01:15 Parainfluenza 2 (PCR) Not detected (NOT DETECT) 03/30/22 01:15 Parainfluenza 3 (PCR) Not detected (NOT DETECT) 03/30/22 01:15 Parainfluenza 4 (PCR) Not detected (NOT DETECT) 03/30/22 01:15 RSV Type A (PCR) Not detected (NOT DETECT) 03/30/22 01:15 RSV Type B (PCR) Not detected (NOT DETECT) 03/30/22 01:15 Entero/Rhino (PCR) Not detected (NOT DETECT) 03/30/22 01:15 SARS-CoV-2 (PCR) Not detected (NOT DETECT) 03/30/22 01:15 SARS-CoV-2 Ag (Rapid) Negative (Negative) 03/29/22 21:31 Micro: Microbiology 03/29/22 21:25 Blood Culture - Preliminary Blood NEGATIVE TO DATE 03/29/22 19:50 Blood Culture - Preliminary Blood NEGATIVE TO DATE 03/30/22 15:20 C.difficile Toxin B Gene (PCR) - Final Stool Routine Collection 03/30/22 15:20 Occult Blood (FIT) - Final Stool Routine Collection A&P Assessment and plan (1) Congestive heart failure: The heart failure seems to be getting compensated. The LV ejection fraction by echocardiogram was around 30%. Hemodynamically seems to be stable. Status: Acute (2) Cardiomyopathy: Most likely the patient may have underlying coronary artery disease. This needs to be further evaluated. Status: Acute (3) Atrial fibrillation: Patient appears to be in chronic atrial fibrillation with a controlled ventricular rate. He is is not on any oral anticoagulant at this time. The medical records from [place] is reviewed. Patient was in atrial fibrill ation in the past. Exact reasons for not being on the oral anticoagulant is not known. Apparently he is Hemoccult positive. At this point, need to hold off on any anticoagulation. Status: Acute (4) Pacemaker: The pacemaker function appears to be appropriate. Apparently had a single- chamber [employer] pacemaker implanted in November of this year at the [facility] in [place]. The pacemaker function appears to be appropriate. Status: Acute (5) Abnormal EKG: The EKG changes may suggest inferior and anterolateral wall ischemia. Patient requires a cardiac catheterization to further evaluate his coronary status. However in view of his multiple comorbidities, we will try to optimize his medical treatment prior to proceeding with an invasive strategy. Status: Acute (6) Acute kidney injury: Patient is a kidney function was in the normal range prior to this. Most likely the heart failure/sepsis might be contributing to this. The BUN/creatinine ratio seems to be going up. The GI bleed could be a cardioverting factor. Status: Acute (7) Sepsis: And is on IV antibiotics. Management as per the primary. Status: Acute (8) Lactic acidosis: The lactic acid level is coming down Status: Acute Plan Other problems are Aortic valve stenosis Hypokalemia Anemia Electrolyte abnormalities Type 2 diabetes UTI/sepsis Dementia We will continue to treat the infection, electrolyte imbalance, heart failure, etc. Family is undecided as to whether they want him to go through any aggressive treatment measures. They are still discussing. Will let me know. Attestations Medical Necessity Statement*: Patient requires continued hospital stay for close monitoring and further management Coding Level of Care Code Acute Melt House Drag Operator for Chg Fwd History Detailed Exam Detailed Medical Decision Making Moderate Complexity Diagnoses Congestive heart failure I50.9 Cardiomyopathy I42.9 Atrial fibrillation I48.91 Pacemaker Z95.0 Abnormal EKG R94.31 Acute kidney injury N17.9 Sepsis A41.9 Lactic acidosis E87.2
[2022-03-31 08:45] LABS: Blood Urea Nitrogen 45 mg/dL (8-23); Calcium 7.8 mg/dL (8.5-10.5); Carbon Dioxide 18 mmol/L (22-29); Chloride 101 mmol/L (98-107); Glucose 110 mg/dL (65-115); Osmolality Calculated 290 mOsm/kg (285-295); Sodium 134 mmol/L (136-145)
[2022-03-31] MEDS: pantoprazole 40 mg SDV IVP ×2 (09:35→21:05)
[2022-03-31] MEDS: cefTRIAXone 1,000 MG in sodium chloride 0.9% (plus) 50 ML 100 MG IV (09:36)
[2022-03-31 11:16] LABS: Glucose Point of Care 176 mg/dL (70-110)
[2022-03-31] MEDS: insulin lispro 100 unit/1 mL SUBCUT (12:37)
--- NOTE | 2022-03-31 13:12 | P.PN_ITS ---
Subjective Subjective: This morning patient is still confused Not been able to eat much Dehydrated I have discontinued his Lasix Hemoglobin 8.9 FOBT positive Discontinue heparin drip Discontinue aspirin Start Protonix Will discuss with his daughter regarding EGD and TPN Currently on dysphagia diet Deconditioned Creatinine improving, leukocytosis improving, he still spiking fever Negative fluid balance Vitals/I&O/Wt Last Vital Signs Temp 99.5 F 03/31/22 07:15 Pulse 74 03/31/22 10:45 Resp 26 H 03/31/22 10:45 BP 145/62 03/31/22 10:45 Pulse Ox 92 03/31/22 10:45 O2 Del Method 03/31/22 08:00 O2 Flow Rate 2 03/31/22 00:00 03/30/22 03/31/22 03/31/22 22:59 06:59 14:59 Intake Total 553.066 / 753.117 190.683 / 943.800 Output Total 1000 / 1000 Balance -446.934 / -246.883 190.683 / -56.200 Weight last 48 hrs Weight 77.111 kg Weight 78.471 kg Weight 77.111 kg Physical Exam Narrative: Clinically patient looks dehydrated S1, S2 variable Abdomen soft Bilateral breath sounds Diminished, crackles positive Mjoica catheter draining clear urine Multiple stage ulcers on sacral area present at the time of admission Oriented to himself Nonfocal neuro exam Short attention span Urinary Catheter Management: Mojica: Cath Placed During This Visit: yes Reason for Continuing Indwelling Catheter: Accurate Measurement of Urinary Output in Critically Ill Patients Urinary Catheter Date of Insertion: 03/29/22 Urinary Catheter Time of Insertion: 20:10 Data : 03/31/22 01:35 03/31/22 08:05 Micro: Microbiology 03/30/22 15:20 Enteric Pathogens (PCR) - Final Stool Routine Collection C.difficile Toxin B Gene (PCR) - Final 03/29/22 17:35 Urine Culture - Final Urine,Clean Catch 03/29/22 21:25 Blood Culture - Preliminary Blood NEGATIVE TO DATE 03/29/22 19:50 Blood Culture - Preliminary Blood NEGATIVE TO DATE 03/30/22 15:20 Occult Blood (FIT) - Final Stool Routine Collection A&P Assessment and plan (1) Lactic acidosis: Status: Acute (2) Atrial fibrillation: Status: Acute (3) Abnormal EKG: Status: Acute (4) Cardiomyopathy: Status: Acute (5) Congestive heart failure: Status: Acute (6) Anemia: Status: Acute (7) Sepsis: Status: Acute (8) Pacemaker: Status: Acute (9) Leukocytosis: Status: Acute (10) Acute kidney injury: Status: Acute (11) Heart failure: Status: Acute (12) Type 2 diabetes mellitus with hyperglycemia: Status: Chronic Qualifiers: Diabetes mellitus terminal makeup operator insulin use: without terminal makeup operator use Qualifie d Code(s): E11.65 - Type 2 diabetes mellitus with hyperglycemia (13) Dementia: Status: Chronic (14) Occult blood positive stool: Status: Acute (15) Community acquired pneumonia: Status: Acute Plan Sepsis related to UTI and community-acquired pneumonia Currently on broad-spectrum antibiotics Febrile episodes present Cultures negative Leukocytosis improving Not quiring oxygen Pleural effusion: No acute indication for thoracentesis Patient on requiring oxygen He is able to lay flat New onset CHF NSTEMI Not a candidate of heparin, FOBT positive Hemoglobin dropped Aspirin heparin discontinued Not a candidate for angiogram Discussed in detail with the family multiple family meetings conducted Appreciate cardiology recommendations Poor appetite Patient is not following commands to eat on his own Will discuss with the family whether they would allow TPN nutrition Acute kidney injury related to new onset CHF Today clinically he is dehydrated, negative balance Stop diuretics Creatinine is improving FOBT positive Will discuss with the family whether they would opt for an EGD, as per the family he had history of gastric ulcer/H. pylori Delirium with underlying dementia Due to sepsis Sepsis has not resolved Pacemaker interrogation DNR/DNI Dysphagia diet Poor prognosis Attestations Medical Necessity Statement*: Continue ICU management Time Spent in Patient Care: 30 Coding Level of Care Code Acute Stereoplotter Operator for Chg Fwd Diagnoses Lactic acidosis E87.2 Atrial fibrillation I48.91 Abnormal EKG R94.31 Cardiomyopathy I42.9 Congestive heart failure I50.9 Anemia D64.9 Sepsis A41.9 Pacemaker Z95.0 Leukocytosis D72.829 Acute kidney injury N17.9 Heart failure I50.9 Type 2 diabetes mellitus with hyperglycemia E11.65 Diabetes mellitus terminal makeup operator insulin use: without terminal makeup operator use Dementia F03.90 Occult blood positive stool R19.5 Community acquired pneumonia J18.9
--- NOTE | 2022-03-31 14:34 | PC.NUTR ---
If TPN medically necessary, recommend starting @ 13 mls/hr and increasing 10 mls/hr Q8H until 83 mls/hr reached with 25 grams/125 mls Fat Emulsion as well as Multivitamins 10 mls/day and standard electrolytes. Details in RD assessment.
[2022-03-31] MEDS: piperacillin-tazobactam 3.375 GM in sodium chloride 0.9% (plus) 50 ML IV ×2 (14:39→21:05)
[2022-03-31] MEDS: vancomycin 1,500 MG/300 ML PIGGYBACK 200 MG IV (14:39)
--- NOTE | 2022-03-31 16:34 | PC.NURSE ---
Daughter came out to the nurses station and said, can somebody explain to me why my dad has not been fed since breakfast. This nurse explained to the daughter that the patient was fed by speech therapy. Shortly after, this nurse could audibly hear crackles while the patient was breathing and attempted to deep suction the patient. Approximately 25mL of chocolate pudding and secretions was suctioned from patients airway. Family was educated that patient is holding bites of food in his mouth and does not swallow correctly. When patient is asked if he is hungry he does not respond appropriately. The daughter is very accusatory and stating that we are starving her dad to . Dr. Raman is aware and he is coming to speak with her.
[2022-03-31] MEDS: lidocaine 1% 5 ML in potassium chloride premix 100 ML 50 ML IV (16:52)
[2022-03-31 17:01] LABS: Magnesium 1.9 mg/dL (1.7-2.3)
[2022-03-31 17:17] LABS: Glucose Point of Care 125 mg/dL (70-110)
[2022-03-31] MEDS: acetaminophen 650 mg Supp PR (21:19)
--- NOTE | 2022-03-31 22:09 | PC.NURSE ---
Bilateral soft wrist restraints DC'd at 2122, patient no longer attempting to remove lines or tubes.
--- NOTE | 2022-03-31 22:11 | PC.NURSE ---
PO medications not given due to aspiration. aware.
[2022-04-01] VITALS (102 sets, daily range): BP systolic 125–152; BP diastolic 54–93; PULSE 67–90; RESP 17–38; TEMP 36.9–38; O2SAT 71–100
[2022-04-01 00:28] LABS: Glucose Point of Care 138 mg/dL (70-110)
[2022-04-01 07:03] LABS: Basophils % 0.1 %; Eosinophils % 0.1 %; Hematocrit 30.8 % (42.0-52.0); Hemoglobin 9.8 g/dL (11.7-16.6); Lymphocytes # 1.1 10^3/uL (0.8-4.8); Lymphocytes % 10.5 %; Mean Corpuscular HGB Conc 31.8 g/dL (30.0-36.0); Mean Corpuscular Hemoglobin 29.3 pg (28.0-34.0); Mean Corpuscular Volume 92.2 fl (80-94); Mean Platelet Volume 11.1 fL (7.4-10.4); Monocytes # 0.9 10^3/uL (0.2-0.9); Monocytes % 8.1 %; Neutrophils # 8.68 10^3/uL (1.8-7.7); Neutrophils % 80.3 %; Nucleated Red Blood Cells % 0.2 %; Platelet Count 187 10^3/cmm (130-400); Red Blood Count 3.34 10^6/uL (4.1-5.3); Red Cell Distribution Width 15.9 % (12.1-15.1); White Blood Count 10.8 10^3/uL (4.0-10.0)
[2022-04-01 07:37] LABS: Blood Urea Nitrogen 32 mg/dL (8-23); Calcium 7.6 mg/dL (8.5-10.5); Carbon Dioxide 16 mmol/L (22-29); Chloride 104 mmol/L (98-107); Glucose 136 mg/dL (65-115); Osmolality Calculated 293 mOsm/kg (285-295); Sodium 137 mmol/L (136-145)
--- NOTE | 2022-04-01 07:37 | XR_ITS ---
WS: [id number] XR chest 1V portable [id number] REASON FOR EXAM: ASPIRATION FINDINGS: Cardiac device over the left chest with single transvenous left subclavian lead to the right ventricu lar apex. Enlargement of the cardiac silhouette. Diffuse interstitial reticular lung opacities and bilateral pleural effusions. These abnormalities ar e more prominent than on the previous examination of 03/30/2022. No new findings. XR/XR chest 1V portable [id number] IMPRESSION: Increasing abnormality in both hemithoraces most compatible with congestive hea rt failure.
--- NOTE | 2022-04-01 07:48 | PC.NURSE ---
NPO Pt unable to safely swallow PO meds. aware.
[2022-04-01] MEDS: piperacillin-tazobactam 3.375 GM in sodium chloride 0.9% (plus) 50 ML IV ×3 (08:19→21:06)
[2022-04-01] MEDS: lidocaine 1% 5 ML in potassium chloride premix 100 ML 25 ML IV (08:20)
[2022-04-01] MEDS: pantoprazole 40 mg SDV IVP ×2 (08:20→21:03)
--- NOTE | 2022-04-01 09:14 | P.PN_ITS ---
Subjective Subjective: Patient now requiring 2 L, Chest x-ray shows worsening bilateral infiltrate I will give him IV Lasix He still spiking fever My concern is related to worsening of aspiration as well Patient is drowsy however verbally redirectable, potassium repleted No overnight events Vitals/I&O/Wt Last Vital Signs Temp 99.8 F H 04/01/22 07:00 Pulse 78 04/01/22 08:00 Resp 20 H 04/01/22 08:00 BP 148/69 04/01/22 07:45 Pulse Ox 97 04/01/22 08:00 O2 Del Method 04/01/22 08:00 O2 Flow Rate 2 04/01/22 08:00 03/31/22 04/01/22 04/01/22 22:59 06:59 14:59 Intake Total 557 / 636.2 50 / 686.2 Output Total 500 / 500 1100 / 1100 Balance 57 / 136.2 50 / 186.2 -1100 / -1100 Physical Exam Narrative: Clinically patient does not look fluid overloaded Bilateral breath sounds with crackles Abdomen soft Bowel sounds present Proximity trace edema Mojica cath draining clear urine Patient is verbally directable Able to follow commands, pleasantly confused, oriented to himself Answer a few questions Today he is requiring 2 L of oxygen Urinary Catheter Management: Mojica: Cath Placed During This Visit: yes Reason for Continuing Indwelling Catheter: Accurate Measurement of Urinary Output in Critically Ill Patients Urinary Catheter Date of Insertion: 03/29/22 Urinary Catheter Time of Insertion: 20:10 Data : 04/01/22 06:55 04/01/22 06:55 Micro: Microbiology 03/30/22 15:20 Enteric Pathogens (PCR) - Final Stool Routine Collection C.difficile Toxin B Gene (PCR) - Final 03/29/22 17:35 Urine Culture - Final Urine,Clean Catch A&P Assessment and plan (1) Occult blood positive stool: Status: Acute (2) Lactic acidosis: Status: Acute (3) Atrial fibrillation: Status: Acute (4) Cardiomyopathy: Status: Acute (5) Congestive heart failure: Status: Acute (6) Anemia: Status: Acute (7) Sepsis: Status: Acute (8) Pacemaker: Status: Acute (9) Acute kidney injury: Status: Acute (10) Heart failure: Status: Acute (11) Type 2 diabetes mellitus with hyperglycemia: Status: Chronic Qualifiers: Diabetes mellitus intermodal owner operator truck driver insulin use: without penitentiary use Qualified Code(s): E11.65 - Type 2 diabetes mellitus with hyperglycemia (12) Dementia: Status: Chronic (13) Hypoxia: Status: Acute Plan New onset congestive heart failure Reduced ejection fraction heart failure Cardiomyopathy Ischemic versus nonischemic? Patient has history of uncontrolled hypertension was taking clonidine Not a good candidate for angiogram as per cardiology, family is agreeable, Creatinine has improved No acute chest pain PVCs with short run of V. tach, potassium, magnesium to be replenished ROMANA: Resolved Related to CHF and cardiorenal UTI Acute hypoxia related to CHF Start IV diuretics again which were discontinued yesterday secondary to poor p.o. intake Sepsis: Improving however not resolved Still febrile mild leukocytosis Cultures negative Related to UTI and aspiration pneumonia, continue IV antibiotic FOBT positive, heparin drip discontinued, not an ideal candidate for EGD because of multiple comorbid conditions, hemoglobin stable hemodynamically stable continue sucralfate and Protonix Dysphagia, currently on pur?ed diet Considering dementia and poor health patient is not an ideal candidate for an angiogram Family is leaning towards disposition to half-way Will let shoe caser know today DNR/DNI SCDs DVT prophylaxis I will request thoracentesis as he is requiring oxygen now Attestations Medical Necessity Statement*: Guarded prognosis can be transferred out of ICU Time Spent in Patient Care: 30 Coding Level of Care Code Acute Motion Picture Cameraman for Chg Fwd Diagnoses Occult blood positive stool R19.5 Lactic acidosis E87.2 Atrial fibrillation I48.91 Cardiomyopathy I42.9 Congestive heart failure I50.9 Anemia D64.9 Sepsis A41.9 Pacemaker Z95.0 Acute kidney injury N17.9 Heart failure I50.9 Type 2 diabetes mellitus with hyperglycemia E11.65 Diabetes mellitus intermodal owner operator truck driver insulin use: without penitentiary use Dementia F03.90 Hypoxia R09.02
[2022-04-01] MEDS: FUROsemide 10 mg/mL SDV 4mL 40 MG IVP (09:33)
--- NOTE | 2022-04-01 10:43 | PC.SOCIAL ---
IMM update IMM updated with patient. Verbalized an understanding. Copy Pg 2 provided. Initialled, dated, timed, and placed in chart
[2022-04-01 11:19] LABS: Glucose Point of Care 144 mg/dL (70-110)
[2022-04-01] MEDS: insulin lispro 100 unit/1 mL SUBCUT (11:53)
[2022-04-01] MEDS: vancomycin 1,500 MG/300 ML PIGGYBACK 200 MG IV (14:18)
--- NOTE | 2022-04-01 15:24 | PC.NURSE ---
Temp 100.4 Removed blanket from bed, pt is covered w/ sheet. Turned room temp down to 65. Put ice packs under both armpits. Fan at bedside, but not turned on per family request. Will recheck temp at 1600.
[2022-04-01] MEDS: acetaminophen 650 mg Supp PR (16:53)
--- NOTE | 2022-04-01 17:08 | PC.NURSE ---
Bleeding in sacral area Pt scratches at sacral excoriation causing skin that is sluffing off to bleed. Educated pt, unable to comprehend education. Educated family. Family holds his hands at bedside as needed and will try to keep his hands on top of the covers. zinc/lidocaine mixture applied.
[2022-04-01 17:20] LABS: Glucose Point of Care 126 mg/dL (70-110)
--- NOTE | 2022-04-01 18:28 | PM.PN ---
Subjective Subjective: The patient is feeling okay. Mental status remains unchanged. Remains afebrile. Telemetry shows atrial fibrillation with demand V pacing. Medications: Medication Review Details: Current Medications Acetaminophen (Acetaminophen 325 Mg Tablet) 650 mg PO Q6H PRN PRN Reason: Mild/Mod Pain Or Temp >/= 101 Last Admin: 03/30/22 23:52 Dose: 650 mg Acetaminophen (Acetaminophen 650 Mg Supp) 650 mg [place] Q6H PRN PRN Reason: FEVER Last Admin: 04/01/22 16:53 Dose: 650 mg Albuterol/Ipratropium (Ipratropium-Albuterol 3 Ml Neb) 3 ml INHALATION Q4H PRN PRN Reason: SHORTNESS OF BREATH Carvedilol (Carvedilol 25 Mg Tablet) 25 mg PO BID [facility] Last Admin: 04/01/22 18:00 Dose: Not Given Dextrose (Dextrose 50% Syringe 50 Ml) 25 ml IVP ONCE PRN; Protocol PRN Reason: hypoglycemia protocol Dextrose (Dextrose 50% Syringe 50 Ml) 50 ml IVP PRN PRN; Protocol PRN Reason: hypoglycemia protocol Furosemide (Furosemide 10 Mg/Ml Sdv 2ml) 20 mg IVP Q24H NICOLE Last Admin: 03/30/22 14:38 Dose: 20 mg Furosemide (Furosemide 10 Mg/Ml Sdv 4ml) 40 mg IVP Q24H NICOLE Last Admin: 04/01/22 09:33 Dose: 40 mg Glucagon (Glucagon 1 Mg/Ml Inj 1 Ml) 1 mg IM ONCE PRN; Protocol PRN Reason: Adult Acute Hypoglycemia Prot. Dextrose (D5w) 500 mls @ 100 mls/hr IV ONCE PRN; Protocol PRN Reason: Adult Acute Hypoglycemia Prot Piperacillin Sod/Tazobactam (Sod 3.375 gm/ Sodium Chloride) 50 mls @ 12.5 mls/hr IV Q8H NICOLE; Protocol Last Admin: 04/01/22 14:15 Dose: 12.5 mls/hr Vancomycin/PEG/NADA/Lysine/Water (Vancocin) 1,500 mg in 300 mls @ 200 mls/hr IV Q24H NICOLE Last Admin: 04/01/22 14:18 Dose: 200 mls/hr Insulin Human Lispro (Insulin Lispro 100 Unit/1 Ml) 0 unit SUBCUT WM&BEDTIME NICOLE; Protocol Last Admin: 04/01/22 18:01 Dose: Not Given Lidocaine HCl (Lidocaine 2% Jelly 5 Ml) 1 applic TOPICAL PRN PRN PRN Reason: PAIN Pantoprazole Sodium (Pantoprazole 40 Mg Sdv) 40 mg IVP BID@0900,2100 [facility] Last Admin: 04/01/22 08:20 Dose: 40 mg Quetiapine Fumarate (Quetiapine 25 Mg Tablet) 25 mg PO BEDTIME [facility] Last Admin: 03/31/22 21:34 Dose: Not Given Sertraline HCl (Sertraline 50 Mg Tablet) 50 mg PO QAM [facility] Last Admin: 04/01/22 07:42 Dose: Not Given Sucralfate (Sucralfate 1 Gm Tablet) 1 gm PO AC&BEDTIME [facility] Last Admin: 04/01/22 17:06 Dose: Not Given Vitals/I&O/Wt Last Vital Signs Temp 98.7 F 04/01/22 17:20 Pulse 74 04/01/22 16:00 Resp 28 H 04/01/22 16:00 BP 152/70 04/01/22 16:00 Pulse Ox 94 04/01/22 16:00 O2 Del Method 04/01/22 16:00 O2 Flow Rate 2 04/01/22 16:00 04/01/22 04/01/22 04/01/22 06:59 14:59 22:59 Intake Total 50 / 686.2 155 / 155 Output Total 4150 / 4150 Balance 50 / 186.2 -3995 / -3995 Physical Exam Narrative: GENERAL: The patient is alert confused and disoriented. Not in any acute distress. HEENT: Moderate pallor, icterus or lymphadenopathy.Oral cavity: There are no mucous membrane lesions. NECK: Trachea appears to be central. No masses noted. No JVD or thyromegaly appreciated. RESPIRATORY: Chest is symmetrical. No intercostals muscle retraction or any accessory muscle activation. There is no chest wall tenderness. Breath sounds are heard bilaterally. No rales or rhonchi heard. No evidence of any consolidation. BREASTS: Deferred. HEART: The heart sounds are normal. No S3 or S4. Ejection systolic murmur grade 3/6 in the aortic area. Short systolic murmur the left sternal border. No diastolic murmurs. No pericardial rub ABDOMEN: No vessel pulsations or distention. No tenderness. No organomegaly appreciated. Bowel sounds are normally heard. : Deferred. RECTAL: Deferred. LYMPHATIC: No lymphadenopathy noted in the neck. EXTREMITIES: 1+ edema with no cyanosis. MUSCULOSKELETAL: No acute joint deformities or swelling SKIN: There are no significant rashes or ecchymosis NEUROPSYCHIATRIC: Alert but confused and disoriented. No focal motor deficits. Urinary Catheter Management: Mojica: Cath Placed During This Visit: yes, but has since been removed by the nurse Reason for Continuing Indwelling Catheter: Decision to DC Catheter Urinary Catheter Date of Insertion: 03/29/22 Urinary Catheter Time of Insertion: 20:10 Date Urinary Catheter Removed: 04/01/22 Time Urinary Catheter Discontinued: 15:25 Data : 04/01/22 06:55 04/01/22 06:55 Micro: Microbiology 03/31/22 14:30 MRSA Culture - Final Nose A&P Assessment and plan (1) Congestive heart failure: The heart failure seems to be getting compensated. The LV ejection fraction by echocardiogram was around 30%. Hemodynamically seems to be stable. Status: Acute (2) Cardiomyopathy: Most likely the patient may have underlying coronary artery disease. The family has decided to not to subject the patient through any invasive interventional procedures. Status: Acute (3) Atrial fibrillation: His ventricular response rate is under control. May continue on the current medications. Status: Acute (4) Pacemaker: The pacemaker function appears to be appropriate. Apparently had a single-chamber St Arturo pacemaker implanted in November of this year at the [facility] in [place]. The pacemaker function appears to be appropriate. Status: Acute (5) Abnormal EKG: The EKG changes may suggest inferolateral ischemia. Continue on the current medications. Status: Acute (6) Acute kidney injury: The kidney function seems to be improving. Status: Acute (7) Sepsis: And is on IV antibiotics. Management as per the primary. Status: Acute Plan Other problems are Aortic valve stenosis Hypokalemia- corrected Anemia- seems stable Electrolyte abnormalities Type 2 diabetes UTI/sepsis Dementia We will continue to treat the infection, electrolyte imbalance, heart failure, etc. Family is undecided as to whether they want him to go through any aggressive treatment measures. They are still discussing. Will let me know. Attestations Medical Necessity Statement*: Disposition as per the primary Coding Level of Care Code Acute Shovel Handle Assembler for [facility] Fwd Diagnoses Congestive heart failure I50.9 Cardiomyopathy I42.9 Atrial fibrillation I48.91 Pacemaker Z95.0 Abnormal EKG R94.31 Acute kidney injury N17.9 Sepsis A41.9
[2022-04-01 20:45] LABS: Glucose Point of Care 122 mg/dL (70-110)
[2022-04-02] VITALS (60 sets, daily range): BP systolic 109–163; BP diastolic 48–92; PULSE 65–85; RESP 14–41; TEMP 36.7–37.5; O2SAT 74–100
[2022-04-02] MEDS: piperacillin-tazobactam 3.375 GM in sodium chloride 0.9% (plus) 50 ML IV ×3 (05:29→21:29)
[2022-04-02 05:37] LABS: Eosinophils % 0.1 %; Hematocrit 37.8 % (42.0-52.0); Hemoglobin 11.2 g/dL (11.7-16.6); Lymphocytes # 1.1 10^3/uL (0.8-4.8); Lymphocytes % 8.6 %; Mean Corpuscular HGB Conc 29.6 g/dL (30.0-36.0); Mean Corpuscular Hemoglobin 28.5 pg (28.0-34.0); Mean Corpuscular Volume 96.2 fl (80-94); Mean Platelet Volume 11.1 fL (7.4-10.4); Monocytes # 0.9 10^3/uL (0.2-0.9); Monocytes % 7.2 %; Neutrophils # 10.62 10^3/uL (1.8-7.7); Neutrophils % 83.7 %; Nucleated Red Blood Cells % 0 %; Platelet Count 210 10^3/cmm (130-400); Red Blood Count 3.93 10^6/uL (4.1-5.3); Red Cell Distribution Width 15.9 % (12.1-15.1); White Blood Count 12.7 10^3/uL (4.0-10.0)
[2022-04-02] MEDS: haloperidol inj 5 mg/mL INJ 1 mL 1 MG IM (05:55)
--- NOTE | 2022-04-02 06:05 | PC.NURSE ---
Sanchez Catheter Patient reported urinary urgency overnight but could not void. Bladder scanned patient, showing >995 mls of urine retention. Called physician and received order to insert sanchez catheter. Upon insertion of catheter 1600 mls of urine was returned.
[2022-04-02 06:07] LABS: Anion Gap 19.7 (5-19); Blood Urea Nitrogen 23 mg/dL (8-23); Calcium 7.7 mg/dL (8.5-10.5); Carbon Dioxide 20 mmol/L (22-29); Chloride 105 mmol/L (98-107); Glucose 153 mg/dL (65-115); Osmolality Calculated 301 mOsm/kg (285-295); Sodium 142 mmol/L (136-145)
[2022-04-02 06:20] LABS: Potassium 2.7 mmol/L (3.5-5.1)
--- NOTE | 2022-04-02 07:23 | PC.NURSE ---
Shift Summary Patient had an eventful shift, he remains disoriented and confused-frequently reoriented patient. Family remained at bedside overnight and also assisted in reorienting patient to time & environment. He continues to scratch the lower back/sacral area where excoriation is noted, barrier cream applied frequently. Mojica catheter drained 1600 mls of urine overnight.
[2022-04-02] MEDS: lidocaine 1% 5 ML in potassium chloride premix 100 ML 25 ML IV (07:38)
[2022-04-02] MEDS: insulin lispro 100 unit/1 mL SUBCUT ×2 (08:01→20:40)
[2022-04-02 08:17] LABS: Glucose Point of Care 145 mg/dL (70-110)
--- NOTE | 2022-04-02 08:43 | PM.PN ---
Subjective Subjective: No cardiac events, Started on TPN and remains afebrile Medications: Reviewed: Yes Vitals/I&O/Wt Last Vital Signs Temp 98.2 F 04/02/22 05:00 Pulse 66 04/02/22 07:52 Resp 16 04/02/22 07:52 BP 163/78 04/02/22 05:30 Pulse Ox 94 04/02/22 07:52 O2 Del Method 04/02/22 07:52 O2 Flow Rate 2 04/02/22 07:52 04/01/22 04/02/22 04/02/22 22:59 06:59 14:59 Intake Total 350 / 505 50 / 555 Output Total 1600 / 5750 Balance 350 / -3645 -1550 / -5195 Physical Exam Narrative: GENERAL: alert but confused HEENT: + pallor CARDIOVASCULAR SYSTEM: S1-S2 irregular. RESPIRATORY SYSTEM: Chest clear to auscultation except at bases. +rhonchi and crackles. ABDOMEN: Soft, nontender and nondistended. Normal bowel sounds present. EXTREMITIES: No cyanosis or edema. No signs of chronic venous insufficiency. Urinary Catheter Management: Mojica: Cath Placed During This Visit: yes, but has since been removed by the nurse Reason for Continuing Indwelling Catheter: Accurate Measurement of Urinary Output in Critically Ill Patients Urinary Catheter Date of Insertion: 04/02/22 Urinary Catheter Time of Insertion: 06:00 Date Urinary Catheter Removed: 04/01/22 Time Urinary Catheter Discontinued: 15:25 Data : 04/02/22 05:26 04/02/22 05:26 Micro: Microbiology 03/31/22 14:30 MRSA Culture - Final Nose A&P Assessment and plan (1) Congestive heart failure: The heart failure seems to be getting compensated. The LV ejection fraction by echocardiogram was around 30%. Hemodynamically seems to be stable. Status: Acute (2) Cardiomyopathy: Most likely the patient may have underlying coronary artery disease. The family has decided to not to subject the patient through any invasive interventional procedures. Status: Acute (3) Atrial fibrillation: His ventricular response rate is under control. May continue on the current medications. Status: Acute (4) Pacemaker: The pacemaker function appears to be appropriate. Apparently had a single-chamber St Arturo pacemaker implanted in November of this year at the [facility] in [place]. The pacemaker function appears to be appropriate. Status: Acute (5) Abnormal EKG: The EKG changes may suggest inferolateral ischemia. Continue on the current medications. Status: Acute (6) Acute kidney injury: The kidney function seems to be improving. Status: Acute (7) Sepsis: And is on IV antibiotics. Management as per the primary. Status: Acute Plan Other problems are Aortic valve stenosis Hypokalemia- Anemia- seems stable Electrolyte abnormalities Type 2 diabetes UTI/sepsis Dementia Attestations Medical Necessity Statement*: As per primary team Time Spent in Patient Care: 16 - 35 minutes Coding Level of Care Code Acute Automotive Repair Technician for g Fwd Diagnoses Congestive heart failure I50.9 Cardiomyopathy I42.9 Atrial fibrillation I48.91 Pacemaker Z95.0 Abnormal EKG R94.31 Acute kidney injury N17.9 Sepsis A41.9
[2022-04-02 09:27] LABS: Magnesium 1.8 mg/dL (1.7-2.3)
--- NOTE | 2022-04-02 09:32 | PC.CHAP ---
Pastoral Care Encounter/Spiritual Assessment Type of Contact [] Declined computer security coordinator visit [] Patient/Family/Request visit [] Outpatient visit [] Follow-up visit [] Physician referral [] Code/Alert [x] Routine visit [] Staff referral [] Actively dying [] Patient sleeping [x] Family support [] [] Out of room [] Palliative care [] [] Receiving care in room [] Pre-surgical visit [] Trauma [] Long length of stay [x] ICU visit [] Other: Relational/Emotional Strength [] Patient feels connected with others/family/visitors/staff [] Distress [] Loneliness/isolation [] Abandonment Spirituality of Patient [x] Person of Anita [] Attends Religion of their Anita [] Believes in Prayer [] Reads Bible or Druze materials [] There are Spiritual issues to be addressed Stranner Interventions [x] Prayer [x Active listening [x] Non-anxious presence [x] Spiritual/emotional support [] Crisis/trauma care [] Spiritual counseling [] Bereavement support [] Provided bereavement packet [] Provided Bible/devotional materials [] Provided toy/stuffed animal, coloring book to patient or family member [] Provided Communion [] Anointing/[place] [] Salvation [x] Completed spiritual assessment [] Other: Impact on Illness or Injury [] Angry [] Fearful [] Anxious [] Often cries [] Exhaustion [] Unable to work [] Unable to attend yazidism [] Unable to walk/stand [] Unable to read [] Unable to drive [] Unable to eat/drink [] Unable to sleep [] Unable to be with family [] Patient intubated [] Other: Summary Time spent with patient
--- NOTE | 2022-04-02 09:53 | PC.NURSE ---
0945 PO meds on hold, to order a barrium swallow .
[2022-04-02] MEDS: FUROsemide 10 mg/mL SDV 4mL 40 MG IVP (09:57)
--- NOTE | 2022-04-02 10:35 | FL_ITS ---
WS: [id number] MODIFIED BARIUM SWALLOW TECHNIQUE: Modified barium swallow with speech therapy using multiple consistencies. FLUOROSCOPY TIME: 2.8 # of spot films: 1 CLINICAL INFORMATION: Oropharyngeal dysphagia COMPARISON: None. FINDINGS: Pudding and nectar consistencies utilized. Markedly delayed oropharyngeal phase. Upon swallowing ther e was significant pooling in the vallecula with penetration and active aspiration. This elicited a co ugh reflex. Exam was terminated at this time. FL/FL barium swallow modifd [id number] IMPRESSION: Markedly delayed oropharyngeal phase with active aspiration.
--- NOTE | 2022-04-02 10:36 | PC.NUTR ---
TPN consult received. As with previous note, recommend starting @ 13 mls/hr and increasing 10 mls/hr Q8H until 83 mls/hr reached with 25 grams/125 mls Fat Emulsion as well as multivitamins 10 mls/day and standard electrolytes. Details in RD assessment.
[2022-04-02 11:52] LABS: Glucose Point of Care 98 mg/dL (70-110)
--- NOTE | 2022-04-02 12:38 | XR_ITS ---
WS: [id number] XR chest 1V portable [id number] REASON FOR EXAM: chf FINDINGS: A right arm PICC line has been placed the tip is at the cavoatrial junction in proper position for us e. Pleural effusions and interstitial lung opacities again noted unchanged from 04/01/2022. XR/XR chest 1V portable [id number] IMPRESSION: Stable abnormal chest with PICC line placement as above.
--- NOTE | 2022-04-02 12:39 | PM.PN ---
Subjective Subjective: Modified barium swallow today Patient had urine retention last night, Mojica catheter was inserted This morning patient is endorsing feeling hungry Potassium repleted Repeat chest x-ray PICC line placement requested Start TPN today He is not vaccinated for COVID-19 manager insurance is aware Awaiting placement Daughter was asking if senior environmental technician could be consulted, I did tell her that at this point there is no acute worsening, his oxygen requirement has not worsened, we still waiting on ultrasound to see if pleural fluid is tappable No fever since evening yesterday I will only keep him on Zosyn for now Vitals/I&O/Wt Last Vital Signs Temp 98.0 F 04/02/22 08:00 Pulse 66 04/02/22 08:00 Resp 16 04/02/22 08:00 BP 118/48 04/02/22 08:00 Pulse Ox 94 04/02/22 08:00 O2 Del Method 04/02/22 08:00 O2 Flow Rate 2 04/02/22 08:00 04/01/22 04/02/22 04/02/22 22:59 06:59 14:59 Intake Total 350 / 505 50 / 555 Output Total 1600 / 5750 Balance 350 / -3645 -1550 / -5195 Physical Exam Narrative: Sacral ulcer, unstageable Skin sloughing off as well No signs of purulent cellulitis Bilateral breath sounds with rhonchi and crackles at the base Crackles slightly better as compared to yesterday Currently on 2 L Hard of hearing Nonfocal neuro exam Thin extremities Dehydrated Does not look fluid overloaded Awake and oriented to himself only Answers to my questions however confused Mojica catheter in place Urinary Catheter Management: Mojica: Cath Placed During This Visit: yes, but has since been removed by the nurse Reason for Continuing Indwelling Catheter: Accurate Measurement of Urinary Output in Critically Ill Patients Urinary Catheter Date of Insertion: 04/02/22 Urinary Catheter Time of Insertion: 06:00 Date Urinary Catheter Removed: 04/01/22 Time Urinary Catheter Discontinued: 15:25 Data : 04/02/22 05:26 04/02/22 05:26 Micro: Microbiology 03/31/22 14:55 Urine Culture - Final Urine Catheterized 03/31/22 14:30 MRSA Culture - Final Nose A&P Assessment and plan (1) Congestive heart failure: Status: Acute (2) Acute kidney injury: Status: Acute (3) Dementia: Status: Acute (4) Pleural effusion: Status: Acute (5) Pneumonia: Status: Acute (6) Diabetes mellitus: Status: Acute (7) Hypoxia: Status: Acute (8) Cardiomyopathy: Status: Acute (9) Anemia: Status: Acute (10) Sepsis: Status: Acute (11) Dementia: Status: Chronic Plan Sepsis related to UTI and aspiration pneumonia Discontinue vancomycin Continue Zosyn No signs of purulent cellulitis of sacral ulcer Cultures negative to date No fever since yesterday Leukocytosis no severe worsening MRSA PCR negative Moderate protein calorie malnourishment Muscle mass loss Dietary consulted IV TPN started Cardiomyopathy, systolic congestive heart failure Currently compensated Discontinue IV Lasix and only use 20 mg p.o. Hypokalemia: Repleted FOBT positive Acute GI blood loss anemia No need of blood transfusion, hemoglobin 11, I do believe this is hemoconcentrated Urinary retention: Patient will need long-term Mojica indwelling catheter Dysphagia: Modified barium swallow today Currently on dysphagia diet continue speech therapy on daily basis CT head did not show acute strokelike features He is able to move all of his extremities Baseline dementia Aspiration pneumonia, pleural effusion right greater than left Still waiting on ultrasound to quantify if we can do thoracentesis currently on 2 L without acute worsening Appreciate cardiology recommendations DNR/DNI Awaiting placement Multiple family meetings are conducted on daily basis, Attestations Medical Necessity Statement*: Continue medical management, he can be transferred out of ICU Critical Care Time: 30 Coding Level of Care Code Acute Hide Tanner for [facility] Fwd Diagnoses Congestive heart failure I50.9 Acute kidney injury N17.9 Dementia F03.90 Pleural effusion J90 Pneumonia J18.9 Diabetes mellitus E11.9 Hypoxia R09.02 Cardiomyopathy I42.9 Anemia D64.9 Sepsis A41.9 Dementia F03.90
--- NOTE | 2022-04-02 14:39 | PC.NURSE ---
Received call from Page Anthony of [facility] regarding follow up of report placed by CHAKA Nguyen. Page states on further follow up needed at this time.
[2022-04-02] MEDS: AA-Dex 5%-20% w/Lytes 1,000 ML with multivitamin inj 10 ML 13 ML IV (15:46)
[2022-04-02 18:02] LABS: Glucose Point of Care 135 mg/dL (70-110)
[2022-04-02 20:50] LABS: Glucose Point of Care 168 mg/dL (70-110)
[2022-04-03] VITALS (15 sets, daily range): BP systolic 109–138; BP diastolic 47–54; PULSE 65–71; RESP 16–26; TEMP 36.8–37.2; O2SAT 94–100
[2022-04-03] MEDS: piperacillin-tazobactam 3.375 GM in sodium chloride 0.9% (plus) 50 ML IV (05:21)
[2022-04-03 05:51] LABS: Basophils % 0.1 %; Eosinophils % 0.2 %; Hematocrit 30.5 % (42.0-52.0); Hemoglobin 9.2 g/dL (11.7-16.6); Lymphocytes % 9.2 %; Mean Corpuscular HGB Conc 30.2 g/dL (30.0-36.0); Mean Corpuscular Hemoglobin 28.8 pg (28.0-34.0); Mean Corpuscular Volume 95.6 fl (80-94); Mean Platelet Volume 11.2 fL (7.4-10.4); Monocytes # 0.7 10^3/uL (0.2-0.9); Monocytes % 6.4 %; Neutrophils # 9.27 10^3/uL (1.8-7.7); Neutrophils % 83.6 %; Nucleated Red Blood Cells % 0 %; Platelet Count 193 10^3/cmm (130-400); Red Blood Count 3.19 10^6/uL (4.1-5.3); Red Cell Distribution Width 15.7 % (12.1-15.1); White Blood Count 11.1 10^3/uL (4.0-10.0)
[2022-04-03 06:15] LABS: Blood Urea Nitrogen 17 mg/dL (8-23); Calcium 7.4 mg/dL (8.5-10.5); Carbon Dioxide 24 mmol/L (22-29); Chloride 109 mmol/L (98-107); Glucose 209 mg/dL (65-115); Osmolality Calculated 310 mOsm/kg (285-295); Sodium 146 mmol/L (136-145)
--- NOTE | 2022-04-03 06:18 | PC.NURSE ---
Shift Note Frequent safety and comfort rounds continue. Orders and/or nursing care completed as indicated. Patient monitored for response to intervention and treatment(s). Education provided includes medication and treatment plan. Patient family verbalize understanding of teaching. Will continue to monitor. Patient had an uneventful shift, turned and repositioned frequently with help from staff. TPN infusing per order through right upper arm PICC line, please see MAR for detail. Excoriation noted to sacrum and scrotal area please see wound assessment for detail.
[2022-04-03 06:20] LABS: Anion Gap 15.8 (5-19); Potassium 2.8 mmol/L (3.5-5.1)
[2022-04-03 07:40] LABS: Glucose Point of Care 215 mg/dL (70-110)
--- NOTE | 2022-04-03 08:00 | P.DS_ITS ---
Discharge Providers Date of Admission: 03/29/22 19:18 Date of Discharge: April 03, 2022 Attending Provider at Admission: Shanna Chase MD Attending Provider at Discharge: Latasha Raman MD Primary Care Provider: Henrik Morris Diagnoses at Discharge Discharge Diagnosis (1) Congestive heart failure: Status: Acute (2) Cardiomyopathy: Status: Acute (3) Atrial fibrillation: Status: Acute (4) Pacemaker: Status: Acute (5) Abnormal EKG: Status: Acute (6) Acute kidney injury: Status: Acute (7) Sepsis: Status: Acute Reason for Visit Reason for Visit: Blood sugar level high, SOB Hospital Course Hospital Course 82-year-old male who was admitted to the hospital for management of shortness of breath and worsening confusion. He was diagnosed with new onset congestive heart failure, reduced action fraction heart failure, Dr. Garcia was consulted who recommended angiogram however because of sepsis and ROMANA this was postponed. Patient has severe dementia, he was found to have sacral ulcers, significant aspiration pneumonia, waxing and waning mentation. He also suffered from UTI. His hemoglobin dropped from 11-8.9, FOBT positive, family decided against EGD. He did not require any blood transfusion. He spiked fever for almost 4 days, after multiple family meetings, decision was made not to do an angiogram. Thoracentesis was not done for his right-sided pleural effusion as subsequent chest x-ray showed improvement however he kept aspirating most of his diet. Modified barium swallow did show that he was showing signs of aspiration with almost every consistency of food. PICC line was placed on 04/02, he got TPN for almost 24 hours only. On 04/02 family decided to opt for hospice at home. Initially there was plan to send him to the [facility] for short-term rehab and then discharging home however family decided to offer home hospice. Hospice would not be able to run TPN it will be discontinued before his discharge from the hospital. He was treated with broad-spectrum antibiotics for his aspiration pneumonia, UTI and sacral ulcers. Multiple etiologies for his sepsis. I would not recommend continuation of antihyperglycemic's hemoglobin A1c is 5.7. Patient has lost significant weight. He is at risk of dehydration because of poor p.o. intake, recurrent aspiration, worsening of sepsis, aspiration pneumonia. His cultures remain negative to date. Consultation: Cardiology Family meetings: Almost on daily basis I was conducting family meetings for 10 to 15 minutes at least, they were about 15-20 people for family meeting on day 1 Physical Exam Narrative: Cachectic, malnourished Muscle mass loss Waxing and waning mentation Able to answer simple questions Oriented to himself Diffuse crackles, rhonchi on lung auscultation Sacral ulcers, Mojica catheter in place Lower extremity no edema Urinary Catheter Management: Mojica: Cath Placed During This Visit: yes, but has since been removed by the nurse Reason for Continuing Indwelling Catheter: Accurate Measurement of Urinary Output in Critically Ill Patients Urinary Catheter Date of Insertion: 04/02/22 Urinary Catheter Time of Insertion: 06:00 Date Urinary Catheter Removed: 04/01/22 Time Urinary Catheter Discontinued: 15:25 Discharge Data Studies Completed and Pending Completed Studies During Hospitalization Category Date Time Status CT chest abdomen pelvis [[place] [id number] Cat Scan 03/29/22 19:43 Completed ] Urgent CT head wo con* [id number] Stat Cat Scan 03/30/22 01:12 Completed Modified barium swallow [FL barium swallow modifd [id number] Exams 04/02/22 10:35 Completed ] Routine XR chest 1V portable [id number] Routine Exams 03/30/22 08:00 Completed XR chest 1V portable [id number] Routine Exams 04/01/22 07:37 Completed XR chest 1V portable [id number] Routine Exams 04/02/22 12:38 Completed XR chest 1V portable [id number] Stat Exams 03/29/22 14:49 Completed CV. echo complete* [id number] Stat Ultrasound 03/29/22 21:40 Completed Pending at discharge Category Date Time Status Blood Culture Routine Lab 03/29/22 21:25 Results Cyto Order Verification Routine Lab 03/29/22 21:58 Ordered LDH Pleural Fluid Routine Lab 03/29/22 21:57 Uncollected Pleural Fluid Triglycerides Routine Lab 03/29/22 21:57 Uncollected Total Protein Pleural Fluid Routine Lab 03/29/22 21:57 Uncollected Vancomycin Trough Timed Lab 04/03/22 13:30 Ordered pH Pleural Fluid Routine Lab 03/29/22 21:57 Uncollected Radiology Impressions Chest/Abdomen/Pelvis CT 03/29/22 19:43 IMPRESSION: Bilateral pleural effusions right greater than left. Dependent pulmonary parenchymal opacities noted bilaterally; there is probable component of atelectasis but coexisting infiltrate may also be present in these regions. Smaller patches of infiltrate in right upper lobe can relate to edema or infectious/inflammatory process. Findings suspicious for aortic valvular stenosis. Additional details as above. IMPRESSION: No findings of obstructive uropathy. Mojica catheter is well positioned in urinary bladder. Relatively prominent stool at rectosigmoid; early impaction difficult to exclude. Layering high density material in gallbladder can represent stones or milk of calcium. Motion degradation in upper abdomen. Additional details as above. Head CT 03/30/22 01:12 IMPRESSION: No acute intracranial abnormality. Modified Barium Swallow 04/02/22 10:35 IMPRESSION: Markedly delayed oropharyngeal phase with active aspiration. Chest X-Ray 04/02/22 12:38 IMPRESSION: Stable abnormal chest with PICC line placement as above. Laboratory Results WBC 11.1 10^3/uL (4.0-10.0) H 04/03/22 04:58 RBC 3.19 10^6/uL (4.1-5.3) L 04/03/22 04:58 Hgb 9.2 g/dL (11.7-16.6) L 04/03/22 04:58 Hct 30.5 % (42.0-52.0) L 04/03/22 04:58 MCV 95.6 fl (80-94) H 04/03/22 04:58 MCH 28.8 pg (28.0-34.0) 04/03/22 04:58 MCHC 30.2 g/dL (30.0-36.0) 04/03/22 04:58 RDW 15.7 % (12.1-15.1) H 04/03/22 04:58 Plt Count 193 10^3/cmm (130-400) 04/03/22 04:58 MPV 11.2 fL (7.4-10.4) H 04/03/22 04:58 Neut % (Auto) 83.6 % 04/03/22 04:58 Lymph % (Auto) 9.2 % 04/03/22 04:58 [place] % (Auto) 6.4 % 04/03/22 04:58 Eos % (Auto) 0.2 % 04/03/22 04:58 Baso % (Auto) 0.1 % 04/03/22 04:58 Neut # (Auto) 9.27 10^3/uL (1.8-7.7) H 04/03/22 04:58 Lymph # (Auto) 1.0 10^3/uL (0.8-4.8) 04/03/22 04:58 [place] # (Auto) 0.7 10^3/uL (0.2-0.9) 04/03/22 04:58 Eos # (Auto) 0.0 10^3/uL (0.0-0.8) 04/03/22 04:58 Baso # (Auto) 0.0 10^3/uL (0.0-0.1) 04/03/22 04:58 Nucleated RBC % (auto) 0 % 04/03/22 04:58 Nucleated RBCs # 0.0 /100WBC 04/03/22 04:58 PT 20.10 SECONDS (12.1-14.9) H 03/30/22 01:00 INR 1.68 (0.8-1.2) H 03/30/22 01:00 APTT 64.3 SECONDS (23.9-36.7) H 03/31/22 08:05 Specimen Type Arterial 03/29/22 11:59 Sample Site Brachial, left 03/29/22 11:59 ABG pH 7.53 (7.35-7.45) H 03/29/22 11:59 ABG pCO2 19.4 mmHg (35-45) L* 03/29/22 11:59 ABG pO2 59.8 mmHg (80.0-100.0) L 03/29/22 11:59 ABG HCO3 16.1 mmol/L (22-26) L 03/29/22 11:59 ABG O2 Saturation 93.5 03/29/22 11:59 ABG Base Excess -5.4 mmol/L (-2.0-2.0) L 03/29/22 11:59 [place] Test N/a 03/29/22 11:59 A-a O2 Gradient 14.8 mmHg (5-10) H 03/29/22 11:59 Hematocrit 27.0 % (42-52) L 03/29/22 11:59 Hgb O2 Saturation 91.5 % (95-100) L 03/29/22 11:59 Carboxyhemoglobin 2.1 %THgb (0.4-20.1) 03/29/22 11:59 Methemoglobin 0.1 % (0.4-1.5) L 03/29/22 11:59 Total Hemoglobin 8.8 g/dL (14-18) L 03/29/22 11:59 Sodium 129.0 mmol/L (131-143) L 03/29/22 11:59 Potassium 3.4 mmol/L (3.5-5.0) L 03/29/22 11:59 Glucose 158.0 mg/dL (70-115) H 03/29/22 11:59 Ionized Calcium 1.1 mmol/L (1.1-1.4) 03/29/22 11:59 O2 Delivery Device Nc 03/29/22 11:59 O2 Liters/Min 2.0 % 03/29/22 11:59 FiO2 28.0 % 03/29/22 11:59 Capacity Planning Engineer ID Ed 03/29/22 11:59 Sodium 146 mmol/L (136-145) H 04/03/22 04:58 Potassium 2.8 mmol/L (3.5-5.1) L* 04/03/22 04:58 Chloride 109 mmol/L (98-107) H 04/03/22 04:58 Carbon Dioxide 24 mmol/L (22-29) 04/03/22 04:58 Anion Gap 15.8 (5-19) 04/03/22 04:58 BUN 17 mg/dL (8-23) 04/03/22 04:58 Creatinine 0.9 mg/dL (0.7-1.2) 04/03/22 04:58 GFR Calculation Not Reportable 04/03/22 04:58 Glucose 209 mg/dL (65-115) H 04/03/22 04:58 POC Glucose 215 mg/dL (70-110) H 04/03/22 07:26 Estimat Average Glucose 117 03/29/22 19:50 Hemoglobin A1c 5.7 % (4.0-6.0) 03/29/22 19:50 Calculated Osmolality 310 mOsm/kg (285-295) H 04/03/22 04:58 Lactic Acid 2.0 mmol/L (0.5-2.2) 03/31/22 01:35 Lactic Acid (Sepsis) 2.6 mmol/L (0.5-2.2) H 03/30/22 01:00 Calcium 7.4 mg/dL (8.5-10.5) L 04/03/22 04:58 Phosphorus 3.7 mg/dL (2.5-4.5) 03/30/22 05:30 Magnesium 1.8 mg/dL (1.7-2.3) 04/02/22 05:26 Iron 17 ug/dL (59-158) L 03/29/22 17:34 Iron 18 ug/dL (59-158) L 03/29/22 17:34 TIBC 233 mcg/dl 03/29/22 17:34 % Saturation 7.7 % (20-50) L 03/29/22 17:34 Unsat Iron Binding 215 ug/dL (112-347) 03/29/22 17:34 Ferritin 141 ng/mL (30-400) 03/29/22 17:34 Total Bilirubin 0.7 mg/dL (0.15-1.2) 03/30/22 05:30 AST 43 U/L (0-40) H 03/30/22 05:30 ALT 43 U/L (0-41) H 03/30/22 05:30 Alkaline Phosphatase 54 IU/L (40-130) 03/30/22 05:30 Lactate Dehydrogenase 270 U/L (135-225) H 03/30/22 05:30 Lactate Dehydrogenase Cancelled 03/30/22 05:30 Creatine Kinase 65 U/L (39-308) 03/30/22 01:00 Troponin T Baseline 43 ng/L (0-15) H 03/29/22 15:36 Troponin T 120 Minute 37.70 ng/L (0-15) H 03/29/22 17:34 Delta Troponin T -5.30 ABS# (0-10) L 03/29/22 17:34 Troponin T Hi Sens 6Hr 33.16 ng/L (0-15) H 03/29/22 21:25 Troponin T Hi Sens 6Hr Delta -9.84 ng/L (0-12) L 03/29/22 21:25 NT-Pro-B Natriuret Pep > 84220 pg/mL (0-450) H 03/29/22 15:36 Total Protein 5.6 g/dL (6.6-8.7) L 03/30/22 05:30 Albumin 3.4 g/dL (3.5-5.2) L 03/30/22 05:30 Globulin 2.2 g/dL (1.3-4.6) 03/30/22 05:30 Triglycerides 83 mg/dL (0-150) 03/29/22 17:34 Cholesterol 125 mg/dL (0-200) 03/29/22 17:34 LDL Cholesterol, Calc 87 mg/dL (50-129) 03/29/22 17:34 HDL Cholesterol 21 mg/dL (60-100) L 03/29/22 17:34 LDL/HDL Ratio 4.14 RATIO (0.00-3.22) H 03/29/22 17:34 Cholesterol/HDL Ratio 5.95 mg/dL (1.0-5.00) H 03/29/22 17:34 Procalcitonin 0.20 ng/mL (0-0.5) 03/29/22 17:34 TSH 1.92 uIU/mL (0.27-4.20) 03/29/22 17:34 Urine Color Yellow (Yellow) 03/29/22 17:35 Urine Appearance Clear (CLEAR) 03/29/22 17:35 Urine pH 5 (5-7) 03/29/22 17:35 Ur Specific [place] 1.020 (1.005-1.030) 03/29/22 17:35 Urine Protein 1+ (Negative) H 03/29/22 17:35 Urine Glucose (UA) Norm (Normal) 03/29/22 17:35 Urine Ketones Negative (Negative) 03/29/22 17:35 Urine Blood 2+ (Negative) H 03/29/22 17:35 Urine Nitrate Negative (Negative) 03/29/22 17:35 Urine Bilirubin Neg (Negative) 03/29/22 17:35 Urine Urobilinogen Norm mg/dL (Negative) 03/29/22 17:35 Ur Leukocyte Esterase 1+ (Negative) H 03/29/22 17:35 Urine RBC 0-4 /hpf (0-2) H 03/29/22 17:35 Urine WBC 55-80 /hpf (0-5) H 03/29/22 17:35 Ur Squamous Epith Cells 0-4 /hpf (0-5) H 03/29/22 17:35 Amorphous Sediment Not Reportable 03/29/22 17:35 Urine Bacteria None /hpf (NONE) 03/29/22 17:35 Nasal Influ A H1 2009 PCR Not detected (NOT DETECT) 03/30/22 01:15 Adenovirus (PCR) Not detected (NOT DETECT) 03/30/22 01:15 C. pneumoniae DNA (PCR) Not detected (NOT DETECT) 03/30/22 01:15 Coronavirus 229E (PCR) Not detected (NOT DETECT) 03/30/22 01:15 Human Metapneumovir PCR Not detected (NOT DETECT) 03/30/22 01:15 Influenza A (H1) PCR Not detected (NOT DETECT) 03/30/22 01:15 Influenza A (H3) PCR Not detected (NOT DETECT) 03/30/22 01:15 Influenza Type A (PCR) Not detected (NOT DETECT) 03/30/22 01:15 Influenza Type B (PCR) Not detected (NOT DETECT) 03/30/22 01:15 M. pneumoniae (PCR) Not detected (NOT DETECT) 03/30/22 01:15 Parainfluenza 1 (PCR) Not detected (NOT DETECT) 03/30/22 01:15 Parainfluenza 2 (PCR) Not detected (NOT DETECT) 03/30/22 01:15 Parainfluenza 3 (PCR) Not detected (NOT DETECT) 03/30/22 01:15 Parainfluenza 4 (PCR) Not detected (NOT DETECT) 03/30/22 01:15 RSV Type A (PCR) Not detected (NOT DETECT) 03/30/22 01:15 RSV Type B (PCR) Not detected (NOT DETECT) 03/30/22 01:15 Entero/Rhino (PCR) Not detected (NOT DETECT) 03/30/22 01:15 SARS-CoV-2 (PCR) Not detected (NOT DETECT) 03/30/22 01:15 SARS-CoV-2 Ag (Rapid) Negative (Negative) 03/29/22 21:31 Vitals Last Vital Signs Temp 98.9 F 04/03/22 07:30 Pulse 68 04/03/22 07:30 Resp 26 H 04/03/22 05:00 BP 138/53 04/03/22 07:30 Pulse Ox 99 04/03/22 01:30 O2 Del Method 04/03/22 07:30 O2 Flow Rate 2 04/03/22 07:30 Discharge Plan Discharge Patient Disposition: Hospice - Home Condition: Stable Prescriptions: New quetiapine 25 mg Tablet 25 mg PO BEDTIME Qty: 10 0RF pantoprazole 40 mg Tablet,Delayed Release (Dr/Ec) 40 mg PO DAILY Qty: 30 0RF Continued amlodipine 5 mg tablet 5 mg PO DAILY Qty: 30 5RF furosemide [Lasix] 20 mg tablet 20 mg PO QAM Qty: 30 5RF lisinopril 20 mg tablet 20 mg PO BID 30 Days Qty: 60 5RF omeprazole 20 mg capsule,delayed release(DR/EC) 20 mg PO DAILY Qty: 30 5RF potassium chloride 10 mEq tablet extended release 10 meq PO DAILY 30 Days Qty: 30 0RF Hold Instructions: Doctor's Order carvedilol 25 mg tablet 25 mg PO BID Zoloft 50 mg tablet 50 mg PO QAM Discontinued aspirin 81 mg tablet,delayed release (DR/EC) 81 mg PO QAM loratadine 10 mg tablet 10 mg PO DAILY Rx Instructions: For skin itching metformin 500 mg tablet extended release 24 hr 500 mg PO BID Qty: 60 5RF glipizide 2.5 mg tablet extended release 24hr 2.5 mg PO BID Qty: 60 0RF furosemide 80 mg tablet 80 mg PO QAM Rx Instructions: X7 DAYS (ENDING ON 04/02/22) doxycycline hyclate 100 mg tablet 100 mg PO BID Rx Instructions: X 7 DAYS saw palmetto 450 mg Capsule 450 mg PO DAILY cranberry extract 200 mg Capsule 200 mg PO DAILY Rx Instructions: administer with a meal potassium chloride 20 mEq tablet extended release 20 meq PO BEDTIME Rx Instructions: X7 DAYS (ENDING ON 04/02/22) Advanced Probiotic 625 mg (10 billion cell) Capsule 1 cap PO DAILY PRN (Reason: ANTIBIOTICS) clonidine 0.3 mg/24 hr patch weekly 1 patch transdermal Q7D Rx Instructions: ON FRIDAY Discharge Orders: Discharge Order (Routine); Ordered 04/03/22 Ordered By: Latasha Raman Referrals: [facility] [Outside] Henrik Morris MD [Primary Care Provider] - Discharge Diet: As Directed Patient Instructions: Opioid Safety Discharge Attestations Time Spent in Discharge Care*: less than 30 min Quality Metrics Clinical Quality Measures [ No reported AMI, CVA or VTE this stay] Coding Level of Care Code Acute Chg FW DC note Diagnoses Congestive heart failure I50.9 Cardiomyopathy I42.9 Atrial fibrillation I48.91 Pacemaker Z95.0 Abnormal EKG R94.31 Acute kidney injury N17.9 Sepsis A41.9
--- NOTE | 2022-04-03 11:07 | PC.SOCIAL ---
IMM update IMM updated with patient and family at bedside. Verbalized an understanding. Copy Pg 2 provided. Initialled, dated, timed, and placed in chart.
== END 2022-04-03 12:37 | disposition hospice, home (50) | DRG 871 ==
LOC: ER 19:12 → ICU 21:28
PROVIDERS: Emergency Medicine; Internal Medicine Cardiovascular Disease; Physician Assistant; Admitting Provider Internal Medicine; Emergency Provider Family Medicine; PCP Family Medicine; Visit Provider Internal Medicine
DX: A41.9 Sepsis, unspecified organism (principal); I50.21 Acute systolic (congestive) heart failure; J69.0 Pneumonitis due to inhalation of food and vomit; N39.0 Urinary tract infection, site not specified; F05 Delirium due to known physiological condition; N17.9 Acute kidney failure, unspecified; E44.0 Moderate protein-calorie malnutrition; E87.2 Acidosis; I48.20 Chronic atrial fibrillation, unspecified; I42.9 Cardiomyopathy, unspecified; R65.20 Severe sepsis without septic shock; I11.0 Hypertensive heart disease with heart failure; F03.90 Unspecified dementia, unspecified severity, without behavioral disturbance, psychotic disturbance, mood disturbance, and anxiety; Z87.891 Personal history of nicotine dependence; E11.65 Type 2 diabetes mellitus with hyperglycemia; Z95.0 Presence of cardiac pacemaker; Z87.440 Personal history of urinary (tract) infections; K21.9 Gastro-esophageal reflux disease without esophagitis; D64.9 Anemia, unspecified; E78.5 Hyperlipidemia, unspecified; F10.11 Alcohol abuse, in remission; Z68.22 Body mass index [BMI] 22.0-22.9, adult; L89.159 Pressure ulcer of sacral region, unspecified stage; L89.152 Pressure ulcer of sacral region, stage 2; R19.5 Other fecal abnormalities; E87.6 Hypokalemia; Z66 Do not resuscitate; I08.3 Combined rheumatic disorders of mitral, aortic and tricuspid valves; N40.1 Benign prostatic hyperplasia with lower urinary tract symptoms; R33.8 Other retention of urine
CPT/HCPCS: 36415; 36416; 36569; 36600; 51702; 70450; 71045; 71250; 74176; 74230; 80048; 80051; 80053; 80061; 81001; 82274; 82330; 82550; 82728; 82805; 82962; 83036; 83540; 83550; 83605; 83615; 83735; 83880; 84100; 84145; 84443; 84484; 85014; 85018; 85025; 85610; 85730; 87040; 87086; 87426; 87486; 87493; 87506; 87581; 87633; 87641; 92507; 92523; 92526; 92610; 92611; 93005; 93306; 94664; 94760; 96365; 96372; 99285; C1751; C9113; J0456; J0696; J1630; J1644; J1815; J1940; J2543; J3370; J3475; J3480; J7030; J7050